=== PATIENT | male | born 1990 | race Caucasian/White ===

== ENCOUNTER 2019-05-06 18:50 | Emergency (ER) | payer OTHER ==
[2019-05-06] MEDS ORDERED: HYDROCODONE/APAP 10/325 TAB ONE (19:23)
--- NOTE | 2019-05-06 20:07 | RAD REPORT ---
EXAM DESCRIPTION: CT - Head Brain Wo Cont - 05/06/2019 7:53 pm CLINICAL HISTORY: Headache/ear pain COMPARISON: None TECHNIQUE: Computed axial tomography of the head was obtained. IV contrast was not requested. All CT scans are performed using dose optimization technique as appropriate and may include automated exposure control or mA/KV adjustment according to patient size. FINDINGS: An intracranial bleed is not seen . The ventricles are normal in caliber. No extra-axial fluid collection is noted. Mild to moderate low-density areas within periventricular, deep and subcortical white matter likely r epresent ischemic changes secondary to small vessel disease. Mild right maxillary sinusitis. No fluid within the mastoid IMPRESSION: No acute intracranial abnormality is seen. If patient's symptoms persist MRI of the bra in would be recommended.
--- NOTE | 2019-05-06 20:14 | EDPHYS ---
Physician Documentation [facility] Name: Nithin Mendoza Age: 29 yrs Sex: Male : 1990 Arrival Date: 05/06/2019 Time: 18:50 Bed 25 Private MD: ED Physician Chaparro Rizvi HPI: 05/06 22:08 This 29 yrs old Male presents to ER via Ambulatory with complaints of Ear kb Pain. 22:08 The patient presents with pain, that is acute. The complaints affect the left ear. kb Onset: The symptoms/episode began/occurred this morning. Modifying factors: The symptoms are alleviated by nothing, the symptoms are aggravated by pulling on ears, touching. Associated signs and symptoms: The patient has no apparent associated signs or symptoms. Severity of symptoms: At their worst the symptoms were moderate in the emergency department the symptoms are unchanged. The patient has experienced similar episodes in the past. The patient has not recently seen a physician. Historical: - Allergies: 18:56 Amoxicillin; aj 18:56 Bactrim; aj - Immunization history:: Adult Immunizations up to date. - Social history:: Smoking status: Patient/guardian denies using tobacco. - Ebola Screening: : No symptoms or risks identified at this time. ROS: 22:06 Constitutional: Negative for fever, chills, and weight loss, Neck: Negative for injury, kb pain, and swelling, Cardiovascular: Negative for chest pain, palpitations, and edema, Respiratory: Negative for shortness of breath, cough, wheezing, and pleuritic chest pain, Abdomen/GI: Negative for abdominal pain, nausea, vomiting, diarrhea, and constipation, : Negative for injury, bleeding, discharge, and swelling, MS/Extremity: Negative for injury and deformity, Skin: Negative for injury, rash, and discoloration, Neuro: Negative for headache, weakness, numbness, tingling, and seizure. 22:06 ENT: Positive for ear pain. Exam: 22:07 Constitutional: This is a well developed, well nourished patient who is awake, alert, kb and in no acute distress. Head/Face: Normocephalic, atraumatic. Neck: Trachea midline, no thyromegaly or masses palpated, and no cervical lymphadenopathy. Supple, full range of motion without nuchal rigidity, or vertebral point tenderness. No Meningismus. Chest/axilla: Normal chest wall appearance and motion. Nontender with no deformity. No lesions are appreciated. Cardiovascular: Regular rate and rhythm with a normal S1 and S2. No gallops, murmurs, or rubs. Normal PMI, no JVD. No pulse deficits. Respiratory: Lungs have equal breath sounds bilaterally, clear to auscultation and percussion. No rales, rhonchi or wheezes noted. No increased work of breathing, no retractions or nasal flaring. Abdomen/GI: Soft, non-tender, with normal bowel sounds. No distension or tympany. No guarding or rebound. No evidence of tenderness throughout. Skin: Warm, dry with normal turgor. Normal color with no rashes, no lesions, and no evidence of cellulitis. MS/ Extremity: Pulses equal, no cyanosis. Neurovascular intact. Full, normal range of motion. Neuro: Awake and alert, GCS 15, oriented to person, place, time, and situation. Cranial nerves II-XII grossly intact. Motor strength 5/5 in all extremities. Sensory grossly intact. Cerebellar exam normal. Normal gait. 22:07 ENT: External ear(s): pain with movement, that is severe, of the left ear lobe and left mastoid area, Ear canal(s): erythema, that is moderate, of the left canal, swelling, that is minimal, of the left canal, TM's: are normal. Vital Signs: 18:56 BP 180 / 97; Pulse 95; Resp 16; Temp 97.7; Pulse Ox 97% on R/A; Weight 123.38 kg; aj Height 5 ft. 9 in. (175.26 cm); 19:45 BP 137 / 95; Pulse 81; Resp 18; Pulse Ox 95% on R/A; ea 20:15 BP 127 / 86; Pulse 78; Resp 18; Temp 98; Pulse Ox 99% ; ea 20:15 Pain 4/10; ea 18:56 Body Mass Index 40.17 (123.38 kg, 175.26 cm) aj MDM: 19:06 Patient medically screened. kb 22:06 Data reviewed: vital signs, nurses notes. Data interpreted: Pulse oximetry: on room air kb is 99 %. Interpretation: normal. Counseling: I had a detailed discussion with the patient and/or guardian regarding: the historical points, exam findings, and any diagnostic results supporting the discharge/admit diagnosis, radiology results, the need for outpatient follow up, an ENT specialist, to return to the emergency department if symptoms worsen or persist or if there are any questions or concerns that arise at home. 05/06 19:16 Order name: CT Head Brain wo Cont; Complete Time: 20:11 kb Administered Medications: 19:28 Drug: [place] 10 mg-325 mg 1 tabs {Note: Alert and calm-0.} Route: PO; ea 20:15 Follow up: Pain 4/10 Adult; Response: No adverse reaction; Pain is decreased; RASS: ea Alert and Calm (0) Disposition: 05/07 02:22 Co-signature as Attending Physician, Chaparro Rizvi MD. rn Disposition: 05/06/19 20:12 Discharged to Home. Impression: Unspecified otitis externa, left ear. - Condition is Stable. - Discharge Instructions: Otitis Externa, [id number], Ear Drops, Adult, [id number]. - Prescriptions for Ciprodex 0.3- 0.1 % Otic Drops, Suspension - instill 4 drop by OTIC route every 12 hours for 7 days , for ears ONLY; 1 Container. - Medication Reconciliation Form, Thank You Letter, Antibiotic Education, Prescription Opioid Use form. - Follow up: Emergency Department; When: As needed; Reason: Worsening of condition. Follow up: Private Physician; When: 2 - 3 days; Reason: Recheck today's complaints, Continuance of care, Re-evaluation by your physician. Signatures: Dispatcher [employer] EDAnne Muñiz, PROPULSION SYSTEMS ENGINEER-C PROPULSION SYSTEMS ENGINEER-Ckb Andreia Huerta RN RN aj Nieto, Roman, MD MD rn Antunez, Elena, RN RN ea Corrections: (The following items were deleted from the chart) 05/06 20:36 20:12 05/06/2019 20:12 Discharged to Home. Impression: Unspecified otitis externa, left ea ear. Condition is Stable. Forms are Medication Reconciliation Form, Thank You Letter, Antibiotic Education, Prescription Opioid Use. Follow up: Emergency Department; When: As needed; Reason: Worsening of condition. Follow up: Private Physician; When: 2 - 3 days; Reason: Recheck today's complaints, Continuance of care, Re-evaluation by your physician. kb
--- NOTE | 2019-05-06 20:14 | ER ---
Nurse's Notes [facility] Name: Nithin Mendoza Age: 29 yrs Sex: Male : 1990 Arrival Date: 05/06/2019 Time: 18:50 Bed 25 Private MD: Diagnosis: Unspecified otitis externa, left ear Presentation: 05/06 18:55 Presenting complaint: Patient states: Left ear pain since this AM. Transition of care: aj patient was not received from another setting of care. Onset of symptoms was May 06, 2019. Risk Assessment: Do you want to hurt yourself or someone else? Patient reports no desire to harm self or others. Initial Sepsis Screen: Does the patient meet any 2 criteria? No. Patient's initial sepsis screen is negative. Does the patient have a suspected source of infection? No. Patient's initial sepsis screen is negative. Care prior to arrival: None. 18:55 Method Of Arrival: Ambulatory 18:55 Acuity: DAISY 4 ea Triage Assessment: 18:56 General: Appears in no apparent distress. uncomfortable, Behavior is calm, cooperative, aj appropriate for age. Pain: Complains of pain in left ear. EENT: Reports pain in left ear. Neuro: Level of Consciousness is awake, alert, obeys commands, Oriented to person, place, time, situation, Appropriate for age. Respiratory: Airway is patent Respiratory effort is even, unlabored, Respiratory pattern is regular, symmetrical. Derm: Skin is intact, is healthy with good turgor, Skin is pink, warm \T\ dry. normal. Historical: - Allergies: 18:56 Amoxicillin; aj 18:56 Bactrim; aj - Immunization history:: Adult Immunizations up to date. - Social history:: Smoking status: Patient/guardian denies using tobacco. - Ebola Screening: : No symptoms or risks identified at this time. Screenin:36 Abuse screen: Denies threats or abuse. Nutritional screening: No deficits noted. ea Tuberculosis screening: No symptoms or risk factors identified. Fall Risk None identified. Assessment: 19:30 General: Appears in no apparent distress. Behavior is appropriate for age. Pain: ea Complains of pain in left ear. Neuro: Level of Consciousness is awake, alert, obeys commands, Oriented to person, place, time, situation. Cardiovascular: Patient's skin is warm and dry. Respiratory: Airway is patent Respiratory effort is even, unlabored, Respiratory pattern is regular, symmetrical. Derm: Skin is pink, warm \T\ dry. 20:32 Reassessment: Patient and/or family updated on plan of care and expected duration. Pain ea level reassessed. Patient is alert, oriented x 3, equal unlabored respirations, skin warm/dry/pink. Pt reports pain has decreased. Discharge instruction given to patient, verbalized the understanding of instruction. Pt left ED ambulatory, pt tolerating well. Patient states feeling better. Vital Signs: 18:56 BP 180 / 97; Pulse 95; Resp 16; Temp 97.7; Pulse Ox 97% on R/A; Weight 123.38 kg; aj Height 5 ft. 9 in. (175.26 cm); 19:45 BP 137 / 95; Pulse 81; Resp 18; Pulse Ox 95% on R/A; ea 20:15 BP 127 / 86; Pulse 78; Resp 18; Temp 98; Pulse Ox 99% ; ea 20:15 Pain 4/10; ea 18:56 Body Mass Index 40.17 (123.38 kg, 175.26 cm) aj ED Course: 18:50 Patient arrived in ED. as 18:54 [facility] Pritchard [facility]C [facility] kb 18:54 Chaparro Rizvi MD is Attending Physician. kb 18:56 Triage completed. aj 18:56 Arm band placed on left wrist. Patient placed in waiting room. aj 19:21 Deepa Alcantara, RN is Primary Nurse. ea 19:37 Patient has correct armband on for positive identification. Bed in low position. Call ea light in reach. Side rails up X2. 19:53 CT Head Brain wo Cont In Process Unspecified. EDMS 20:33 No provider procedures requiring assistance completed. Patient did not have IV access ea during this emergency room visit. Administered Medications: 19:28 Drug: [place] 10 mg-325 mg 1 tabs {Note: Alert and calm-0.} Route: PO; ea 20:15 Follow up: Pain 4/10 Adult; Response: No adverse reaction; Pain is decreased; RASS: ea Alert and Calm (0) Outcome: 20:12 Discharge ordered by . kb 20:35 Discharged to home ambulatory, with family. ea 20:35 Condition: stable 20:35 Discharge instructions given to patient, Instructed on discharge instructions, follow up and referral plans. medication usage, Demonstrated understanding of instructions, follow-up care, medications, Prescriptions given X 1. 20:36 Patient left the ED. elaine Signatures: Dispatcher [employer] EDAnne Muñiz, WIRE WALKER-C EDINSON-Andreia Thapa, RN Park Borrego Elena, RN RN ea Corrections: (The following items were deleted from the chart) 19:22 18:55 Acuity: DAISY 5 siobhan henry
== END 2019-05-06 20:36 | disposition home or self-care (01) ==
LOC: ER 18:50 → EDBD 18:50 → ER 20:36
DX: H60.92 Unspecified otitis externa, left ear (principal); Z88.1 Allergy status to other antibiotic agents
CPT/HCPCS: 70450; 99283

== ENCOUNTER 2020-07-06 23:58 | Emergency (ER) | payer OTHER ==
[2020-07-07] MEDS ORDERED: MORPHINE 4 MG/ML SYR ONE (00:23)
[2020-07-07] MEDS ORDERED: ONDANSETRON 4 MG/2 ML VIAL ONE (00:23)
[2020-07-07] MEDS ORDERED: KETOROLAC 30 MG/ML INJ ONE (00:25)
[2020-07-07 00:54] LABS: Absolute Lymphocytes (CBC) 6.6 K/uL (0.7-4.9); Basophils % 0.7 % (0-1.3); Hematocrit 47.5 % (39.6-49.0); Lymphocytes % 37.3 % (15.3-44.8); MPV 9.7 fL (7.6-11.3); RBC Red Blood Cell Count 5.17 M/uL (4.33-5.43)
[2020-07-07 00:55] LABS: Protime INR 1.07
[2020-07-07 01:05] LABS: ALT/SGPT 72 U/L (12-78); AST/SGOT 39 U/L (15-37); Albumin 4.2 g/dL (3.4-5.0); Alkaline Phosphatase 106 U/L (45-117); BUN Blood Urea Nitrogen 15 mg/dL (7-18); Bicarbonate 27 mmol/L (21-32); Bilirubin Direct < 0.1 mg/dL (0-0.2); Bilirubin Total 0.3 mg/dL (0.2-1.0); Glucose Level 121 mg/dL (74-106); Magnesium 2.1 mg/dL (1.8-2.4); NT PRO-BNP 34 pg/mL (<125); Potassium 3.7 mmol/L (3.5-5.1); Sodium Level 143 mmol/L (136-145); Troponin (Emerg Dept Use Only) < 0.02 ng/mL (0.0-0.045)
--- NOTE | 2020-07-07 04:19 | ER ---
Nurse's Notes [facility] Name: Nithin Mendoza Age: 30 yrs Sex: Male : 1990 Arrival Date: 07/06/2020 Time: 23:59 Bed 5 Private MD: Diagnosis: Other chest pain Presentation: 07/07 00:04 Chief complaint: Patient states: I was short of breath and having chest pain while I tl1 was driving over here and when I was walking into the ER I became very dizzy. Coronavirus screen: Client denies travel out of the [place] in the last 14 days. Client presents with at least one sign or symptom that may indicate coronavirus-19. Standard/surgical mask placed on the client. Provider contacted for isolation considerations. Ebola Screen: Patient negative for fever greater than or equal to 101.5 degrees Fahrenheit, and additional compatible Ebola Virus Disease symptoms Patient denies exposure to infectious person. Patient denies travel to an Ebola-affected area in the 21 days before illness onset. Initial Sepsis Screen: Does the patient meet any 2 criteria? RR > 20 per min. HR > 90 bpm. Does the patient have a suspected source of infection? No. Patient's initial sepsis screen is negative. Risk Assessment: Do you want to hurt yourself or someone else? Patient reports no desire to harm self or others. Onset of symptoms was July 07, 2020. 00:04 Method Of Arrival: Ambulatory tl1 00:04 Acuity: DAISY 2 tl1 Historical: - Allergies: 00:08 Amoxicillin; tl1 00:08 Bactrim; tl1 - Home Meds: 00:08 Lisinopril Oral [Active]; Synthroid Oral [Active]; Lasix Oral [Active]; tl1 - PMHx: 00:08 Hypertension; Hypothyroidism; tl1 - Immunization history:: Adult Immunizations unknown. - Social history:: Smoking status: Patient reports the use of cigarette tobacco products, smokes 1.5 packs per day, Patient uses alcohol, occasionally. Screenin:24 Abuse screen: Denies threats or abuse. Denies injuries from another. Nutritional rr5 screening: No deficits noted. Tuberculosis screening: No symptoms or risk factors identified. Fall Risk IV access (20 points). Total Cordero Fall Scale indicates No Risk (0-24 pts). Assessment: 00:10 General: Appears in no apparent distress. uncomfortable, Behavior is cooperative, rr5 anxious. Pain: Pain currently is 8 out of 10 on a pain scale. Quality of pain is described as aching, Pain began gradually, Is intermittent. Neuro: Level of Consciousness is awake, alert, obeys commands, Oriented to person, place, time, situation, Reports dizziness. Cardiovascular: Reports chest pain, shortness of breath, Capillary refill < 3 seconds Patient's skin is warm and dry. Respiratory: Airway is patent Respiratory effort is even, labored, Respiratory pattern is regular, symmetrical, tachypnea. GI: No signs and/or symptoms were reported involving the gastrointestinal system. : No signs and/or symptoms were reported regarding the genitourinary system. EENT: No signs and/or symptoms were reported regarding the EENT system. Derm: Skin is intact, is healthy with good turgor, Skin temperature is warm. Musculoskeletal: Circulation, motion, and sensation intact. Capillary refill < 3 seconds. 01:10 Reassessment: Patient appears in no apparent distress at this time. Patient and/or rr5 family updated on plan of care and expected duration. Pain level reassessed. Patient is alert, oriented x 3, equal unlabored respirations, skin warm/dry/pink. 01:41 Reassessment: SYMPTOMS ARE RESOLVING. PATIENT'S BREATHING IS MORE EFFECTIVE NOW. DENIES rv CHEST PAIN AT THE MOMENT. VITAL SIGNS STABLE. Patient states feeling better. Patient states symptoms have improved. Neuro: Level of Consciousness is awake, alert, obeys commands, Oriented to person, place, time, situation. Cardiovascular: Patient's skin is warm and dry. Rhythm is sinus rhythm with unifocal PVCs. 02:30 Reassessment: Patient appears in no apparent distress at this time. Patient is alert, rr5 oriented x 3, equal unlabored respirations, skin warm/dry/pink. back from CT scan. 03:30 Reassessment: Patient appears in no apparent distress at this time. Patient and/or rr5 family updated on plan of care and expected duration. Pain level reassessed. Patient is alert, oriented x 3, equal unlabored respirations, skin warm/dry/pink. 04:32 Reassessment: Patient appears in no apparent distress at this time. Patient is alert, rr5 oriented x 3, equal unlabored respirations, skin warm/dry/pink. discharge instruction given and explained without complaints made. Patient states symptoms have improved. Vital Signs: 00:04 BP 172 / 96; Pulse 109; Resp 26; Temp 100.2(O); Pulse Ox 100% ; Weight 122.47 kg; tl1 Height 5 ft. 8 in. (172.72 cm); Pain 8/10; 00:25 BP 130 / 79; Pulse 95; Resp 20; Pulse Ox 98% ; rr5 01:00 BP 137 / 73; Pulse 91; Resp 19; Pulse Ox 96% on R/A; rv 01:30 BP 109 / 69; Pulse 98; Resp 16; Pulse Ox 95% on R/A; rv 02:09 BP 112 / 72; Pulse 78; Resp 16; Pulse Ox 100% on R/A; rr5 03:00 BP 126 / 85; Pulse 70; Resp 17; Pulse Ox 99% ; rr5 04:10 BP 111 / 65; Pulse 79; Resp 15; Pulse Ox 98% ; rr5 00:04 Body Mass Index 41.05 (122.47 kg, 172.72 cm) tl1 ED Course: 07/06 23:59 Patient arrived in ED. sg 10 00:05 Vishnu Vargas MD is Attending Physician. tw4 00:05 Inserted saline lock: 20 gauge in right antecubital area, using aseptic technique. rv Blood collected. 00:05 Initial lab(s) drawn, by me, sent to lab. EKG done, by ED staff, reviewed by Vishnu Vargas MD. 00:06 Triage completed. tl1 00:07 Hector Hurtado, RN is Primary Nurse. rv 00:08 Arm band placed on right wrist. tl1 00:10 Patient has correct armband on for positive identification. Placed in gown. Bed in low rr5 position. Call light in reach. Side rails up X2. front desk monitor on. Pulse ox on. NIBP on. 00:11 EKG completed in triage. Results shown to . tl1 00:48 XRAY Chest (1 view) In Process Unspecified. EDMS 02:43 CT Chest For PE Angio In Process Unspecified. EDMS 03:30 Repeat lab(s) drawn. by ED staff, sent to lab. rr5 04:33 No provider procedures requiring assistance completed. IV discontinued, intact, rr5 bleeding controlled, No redness/swelling at site. Pressure dressing applied. Administered Medications: 00:17 Drug: Zofran (Ondansetron) 4 mg Route: IVP; Site: right antecubital; rv 01:10 Follow up: Response: No adverse reaction rr5 00:18 Not Given (Patient Refused): morphine 4 mg IVP once; RASS on ADMIN: Combtv4, Very rv Agttd3, Agttd2, Rstlss1, AlertClm0, Drwsy-1, Lt Sdtn-2, Mod Sdtn-3, Dp Sdtn-4, UnArsble-5 00:18 Drug: TORadol 30 mg Route: IVP; Site: right antecubital; rv 01:10 Follow up: Response: No adverse reaction rr5 Outcome: 04:18 Discharge ordered by . tw4 04:30 Discharged to home ambulatory. rr5 04:30 Condition: stable 04:30 Discharge instructions given to patient, Instructed on discharge instructions, follow up and referral plans. medication usage, Demonstrated understanding of instructions, follow-up care, medications, Prescriptions given X 1. 04:32 Patient left the ED. sg Signatures: Dispatcher [employer] EDMS Percy Arrington RN RN sg Stacie Carmona RN RN tl1 Vishnu Vargas MD MD tw4 Hector Hurtado RN RN rv Bipin Richardson RN RN rr5 Corrections: (The following items were deleted from the chart) 00:18 00:17 morphine 4 mg IVP in right antecubital rv rv
--- NOTE | 2020-07-07 04:20 | EDPHYS ---
Physician Documentation [facility] Name: Nithin Mendoza Age: 30 yrs Sex: Male : 1990 Arrival Date: 07/06/2020 Time: 23:59 Bed 5 Private MD: ED Physician Vishnu Vargas HPI: 07/07 00:13 This 30 yrs old Male presents to ER via Ambulatory with complaints of chest tw4 pain. 00:13 The patient or guardian reports chest pain that is located primarily in the substernal tw4 area. The pain does not radiate. Associated signs and symptoms: The patient has no apparent associated signs or symptoms. The chest pain is described as dull. Duration: The patient or guardian reports a single episode. Modifying factors: The symptoms are alleviated by nothing. the symptoms are aggravated by nothing. Severity of pain: At its worst the pain was moderate in the emergency department the pain is unchanged. Historical: - Allergies: 00:08 Amoxicillin; tl1 00:08 Bactrim; tl1 - Home Meds: 00:08 Lisinopril Oral [Active]; Synthroid Oral [Active]; Lasix Oral [Active]; tl1 - PMHx: 00:08 Hypertension; Hypothyroidism; tl1 - Immunization history:: Adult Immunizations unknown. - Social history:: Smoking status: Patient reports the use of cigarette tobacco products, smokes 1.5 packs per day, Patient uses alcohol, occasionally. ROS: 03:15 Constitutional: Negative for fever, chills, and weight loss, Eyes: Negative for injury, tw4 pain, redness, and discharge, Respiratory: Negative for shortness of breath, cough, wheezing, and pleuritic chest pain, Abdomen/GI: Negative for abdominal pain, nausea, vomiting, diarrhea, and constipation, Back: Negative for injury and pain, MS/Extremity: Negative for injury and deformity, Skin: Negative for injury, rash, and discoloration, Neuro: Negative for headache, weakness, numbness, tingling, and seizure. 03:15 Cardiovascular: Positive for chest pain, Negative for edema, orthopnea, palpitations. Exam: 03:15 Constitutional: This is a well developed, well nourished patient who is awake, alert, tw4 and in no acute distress. Head/Face: Normocephalic, atraumatic. Chest/axilla: Normal chest wall appearance and motion. Nontender with no deformity. No lesions are appreciated. Cardiovascular: Regular rate and rhythm with a normal S1 and S2. No gallops, murmurs, or rubs. Normal PMI, no JVD. No pulse deficits. Respiratory: Lungs have equal breath sounds bilaterally, clear to auscultation and percussion. No rales, rhonchi or wheezes noted. No increased work of breathing, no retractions or nasal flaring. Abdomen/GI: Soft, non-tender, with normal bowel sounds. No distension or tympany. No guarding or rebound. No evidence of tenderness throughout. Vital Signs: 00:04 BP 172 / 96; Pulse 109; Resp 26; Temp 100.2(O); Pulse Ox 100% ; Weight 122.47 kg; tl1 Height 5 ft. 8 in. (172.72 cm); Pain 8/10; 00:25 BP 130 / 79; Pulse 95; Resp 20; Pulse Ox 98% ; rr5 01:00 BP 137 / 73; Pulse 91; Resp 19; Pulse Ox 96% on R/A; rv 01:30 BP 109 / 69; Pulse 98; Resp 16; Pulse Ox 95% on R/A; rv 02:09 BP 112 / 72; Pulse 78; Resp 16; Pulse Ox 100% on R/A; rr5 03:00 BP 126 / 85; Pulse 70; Resp 17; Pulse Ox 99% ; rr5 04:10 BP 111 / 65; Pulse 79; Resp 15; Pulse Ox 98% ; rr5 00:04 Body Mass Index 41.05 (122.47 kg, 172.72 cm) tl1 MDM: 00:05 Patient medically screened. tw4 04:17 Differential diagnosis: pulmonary embolus, thoracic aortic disection. Data reviewed: tw4 vital signs, nurses notes. Counseling: I had a detailed discussion with the patient and/or guardian regarding: the historical points, exam findings, and any diagnostic results supporting the discharge/admit diagnosis, lab results, radiology results. Medication response: Response to treatment: and as a result, I will discharge patient. Special discussion: I discussed with the patient/guardian in detail that at this point there is no indication for admission to the hospital. It is understood, however, that if the symptoms persist or worsen the patient needs to return immediately for re-evaluation. 07/07 00:06 Order name: Basic Metabolic Panel; Complete Time: 01:08 tw4 07/07 01:08 Interpretation: Normal except: GLUC 121; GFR 74. tw4 07/07 00:06 Order name: CBC with Diff; Complete Time: 01:08 tw4 07/07 01:08 Interpretation: Normal except: WBC 17.7; NEUT A 9.0. tw4 07/07 00:06 Order name: LFT's; Complete Time: :08 tw4 07/07 01:08 Interpretation: Normal except: AST 39; GLOB 3.8. tw4 07/07 00:06 Order name: Magnesium; Complete Time: :08 tw4 07/07 01:09 Interpretation: Within normal limits: MG 2.1. tw4 07/07 00:06 Order name: NT PRO-BNP; Complete Time: 01:08 tw4 07/07 01:09 Interpretation: Within normal limits: NT PRO-BNP 34. tw4 07/07 00:06 Order name: PT-INR; Complete Time: :08 tw4 07/07 01:08 Interpretation: Normal except: PT 12.6. tw4 07/07 00:06 Order name: Troponin (emerg Dept Use Only); Complete Time: :08 tw4 07/07 00:06 Order name: XRAY Chest (1 view) tw4 07/07 01:01 Order name: CT Chest For PE Angio tw4 07/07 03:22 Order name: Troponin (emerg Dept Use Only) rv 07/07 00:06 Order name: EKG; Complete Time: 00:08 4 07/07 00:06 Order name: Cardiac monitoring; Complete Time: 00:25 tw4 07/07 00:06 Order name: EKG - Nurse/Tech; Complete Time: 00:25 tw4 07/07 00:06 Order name: IV Saline Lock; Complete Time: 00: tw4 07/07 00:06 Order name: Labs collected and sent; Complete Time: 00: tw4 07/07 00:06 Order name: O2 Per Protocol; Complete Time: 00:22 tw4 07/07 00:06 Order name: O2 Sat Monitoring; Complete Time: 00:22 tw4 EC:15 Rate is 114 beats/min. Rhythm is regular. QRS Ermine is Normal. ND interval is normal. tw4 QRS interval is normal. QT interval is normal. No Q waves. T waves are Normal. No ST changes noted. Clinical impression: Sinus tachycardia. Interpreted by me. Reviewed by me. Administered Medications: 00:17 Drug: Zofran (Ondansetron) 4 mg Route: IVP; Site: right antecubital; rv 01:10 Follow up: Response: No adverse reaction rr5 00:18 Not Given (Patient Refused): morphine 4 mg IVP once; RASS on ADMIN: Combtv4, Very rv Agttd3, Agttd2, Rstlss1, AlertClm0, Drwsy-1, Lt Sdtn-2, Mod Sdtn-3, Dp Sdtn-4, UnArsble-5 00:18 Drug: TORadol 30 mg Route: IVP; Site: right antecubital; rv 01:10 Follow up: Response: No adverse reaction rr5 Disposition: 07/07/20 04:18 Discharged to Home. Impression: Other chest pain. - Condition is Stable. - Discharge Instructions: Nonspecific Chest Pain, Pain Without a Known Cause. - Prescriptions for Ibuprofen 800 mg Oral Tablet - take 1 tablet by ORAL route every 12 hours As needed take with food; 20 tablet. - Medication Reconciliation Form, Thank You Letter, Antibiotic Education, Prescription Opioid Use form. - Follow up: Private Physician; When: Upon discharge from the Emergency Department; Reason: Recheck today's complaints, Continuance of care, Re-evaluation by your physician. - Problem is new. - Symptoms have improved. Signatures: Dispatcher [employer] [facility] Percy Arrington RN RN sg Stacie Carmona RN RN tl1 Vishnu Vargas MD MD tw4 Hector Hurtado RN RN rv Bipin Richadrson RN rr5 Corrections: (The following items were deleted from the chart) 03:34 03:25 TROPONIN (EMERG DEPT USE ONLY)+C.LAB.BRZ ordered. [facility] 04:32 04:18 07/07/2020 04:18 Discharged to Home. Impression: Other chest pain. Condition is sg Stable. Forms are Medication Reconciliation Form, Thank You Letter, Antibiotic Education, Prescription Opioid Use. Follow up: Private Physician; When: Upon discharge from the Emergency Department; Reason: Recheck today's complaints, Continuance of care, Re-evaluation by your physician. Problem is new. Symptoms have improved. tw4
[2020-07-07 04:43] VITALS: TEMP 100.2
[2020-07-07 04:54] VITALS: BP 111/65; O2SAT 98
--- NOTE | 2020-07-07 08:05 | RAD REPORT ---
EXAM DESCRIPTION: RAD - Chest Single View - 07/07/2020 12:47 am CLINICAL HISTORY: CHEST PAIN COMPARISON: None TECHNIQUE: AP portable chest image was obtained 07/07/2020 12:47 am . FINDINGS: Lung volumes are low. No peripheral lung parenchymal process. Interstitial markings are no t outside of normal range. Heart and vasculature are normal. No measurable pleural effusion and no pn eumothorax. No acute bony abnormality seen. No acute aortic findings suspected. IMPRESSION: No acute cardiopulmonary process.
--- NOTE | 2020-07-07 13:03 | RAD REPORT ---
EXAM DESCRIPTION: CT - Chest For Pe Angio - 07/07/2020 6:49 am CLINICAL HISTORY: CHEST PAIN TECHNIQUE: Contiguous axial images obtained through the chest during angiographic phase following th e uneventful administration of IV contrast. Sagittal and coronal reformatted images were provided. PA P reformatted images were provided. This exam was performed according to our departmental dose-optimization program, which includes autom ated exposure control, adjustment of the mA and/or kV according to patient size and/or use of iterati ve reconstruction technique. COMPARISON: No prior exams provided for comparison. FINDINGS: Diagnostic quality: There is good opacification of the pulmonary arterial tree. Motion art ifact degrades image quality and limits evaluation of segmental and subsegmental vessels. Lungs: No focal consolidation. Airways are patent. Pleura: No effusion. No pneumothorax. Heart and pericardium: The heart is normal in size. No pericardial effusion. Mediastinum and abraham: No pathologically enlarged lymph nodes. Lower neck and chest wall: Unremarkable Vessels: No pulmonary arterial filling defects. No thoracic aortic aneurysm. Upper abdomen: The liver is enlarged and diffusely low in density compatible with steatosis. Bones: Mild multilevel spondylosis. No acute fracture. IMPRESSION: Motion artifact degrades image quality and limits evaluation of segmental and subsegment al vessels. No central pulmonary embolic disease. Electronically signed by: Yeimi Sarah MD 07/07/2020 2:55 AM CDT Due to temporary technical issues with the PACS/Fluency reporting system, reports are being signed by the in house radiologist without review as a courtesy to ensure prompt reporting. The interpreting r adiologist is fully responsible for the content of the report.
--- OUTSIDE RECORDS SUMMARY | 2020-07-07 22:44 | XMS REPORT | Continuity of Care Document ---
:1990 Author Organization [facility] t Address [address] [place] [address] Care Team Providers Name Role Phone Valentin Andersen MD Attending Clinician Problems This patient has no known problems. Allergies, Adverse Reactions, Alerts This patient has no known allergies or adverse reactions. Medications This patient has no known medications. Procedures This patient has no known procedures. Encounters Start End Encounter Admission Attending Care Care Encounter Source Date/Time Date/Time Type Type Clinicians Facility Department ID 2020-07-07 2020-07-07 Office SERJIO Andersen [id number] 16:07:38 16:27:38 Visit Valentin Gaines [id number] [place] [id number] [phone] [place] [facility] Building Results This patient has no known results.
== END 2020-07-07 04:32 | disposition home or self-care (01) ==
LOC: ER 23:58
DX: R07.89 Other chest pain (principal); I10 Essential (primary) hypertension; E03.9 Hypothyroidism, unspecified; F17.210 Nicotine dependence, cigarettes, uncomplicated; Z88.1 Allergy status to other antibiotic agents
CPT/HCPCS: 93005; 85025; 80048; 36415; 83735; 85610; 80076; 84484 ×2; 83880; 71275; 71045; 96375; 96374; 99285; Q9967; J2405

== ENCOUNTER 2020-11-04 19:00 | Emergency (ER) | payer OTHER ==
--- OUTSIDE RECORDS SUMMARY | 2020-11-04 19:03 | XMS REPORT | Continuity of Care Document ---
:1990 Author Organization [facility] t Address [address] [place] [address] Care Team Providers Name Role Phone Singer BRO Attending Clinician Uri MORELOS, Johnnie Attending Clinician Problems This patient has no known problems. Allergies, Adverse Reactions, Alerts This patient has no known allergies or adverse reactions. Medications This patient has no known medications. Procedures This patient has no known procedures. Encounters Start End Encounter Admission Attending Care Care Encounter Source Date/Time Date/Time Type Type Clinicians Facility Department ID 2020-11-04 2020-11-04 Emergency [place] [id number] 18:03:00 18:34:00 Anthony Gaines [id number] [place] [id number] [place] [id number] 2020-11-04 2020-11-04 Emergency [facility] [id number] 17:28:00 17:32:00 [place] [id number] [place] [id number] [place] [id number] 2020-10-28 2020-10-28 Office Uri [facility] [id number] 09:47:36 10:52:20 Visit Francisco Gaines [id number] Johnnie [place] [id number] [facility] [phone] [facility] 188 Building Results This patient has no known results.
--- OUTSIDE RECORDS SUMMARY | 2020-11-04 19:03 | XMS REPORT | Summary of Care ---
:1990 Author Organization [facility] [place] Address [address] [place] [id number] Care Team Providers Name Role Phone Valentin Andersen MD Primary Care Provider Reason for Referral (Routine) Status Reason Specialty Diagnoses / Referred By Referred To Procedures Contact Contact New Request Surgery Diagnoses Abdominal hernia without obstruction and without gangrene, recurrence not specified, unspecified hernia type Valentin Andersen, Procedures CONSULT/REFERRAL GENERAL SURGERY MD [address] [place] [address] [address] [place], [place] [address] Reason for Visit Reason Comments Follow-up Anxiety Depression Sleep Apnea Thyroid Problem Hyperlipidemia Hypertension VACCINATIONS Encounter Details Date Type Department Care Team Description 08/17/2020 Office Visit [facility] Valentin Andersen, Anxiety an d depression (Primary Dx); Pediatric and Adult Essential hypertension; Primary Care- [address] [place], [place] [address] Gastroesophageal reflux disease, unspeci fied whether esophagitis present; [address] [place] [address] Abdominal hernia without obstruction and without gangrene, recurrence not specified, unspecified hernia type; Drive, [address] [place], [place] Adjustment insomnia; [place] [address] Class 3 severe obesity due to excess cain ories with serious comorbidity and body mass index (BMI) of 40.0 to 44.9 in adult; [id number] Need for 23-polyvalent pneumococcal poly saccharide vaccine; [phone] Nicotine depend ence, cigarettes, uncomplicated (Fax) Allergies Active Allergy Reactions Severity Noted Date Comments Amoxicillin Unknown - See comments 02/09/2019 Sulfa (Sulfonamide Antibiotics) Unknown - See comments 02/09/2019 documented as of this encounter (statuses as of 08/17/2020) Medications Medication Sig Dispensed Refills Start End Date Status Date terbinafine HCl 1 % Apply to 1 Tube 1 Active creamIndications: area(s) 0 Pain of right great daily. toe, Onychomycosis Diagnosis: B35.1. Apply daily to right big toe nail once daily x 4 weeks. ondansetron (ZOFRAN Take 1 20 tablet 0 Active ODT) 8 mg tablet by 0 disintegrating mouth every tabletIndications: 8 (eight) Non-intractable hours as vomiting with nausea, needed for unspecified vomiting Nausea and type Vomiting (N/V). lisinopril 20 mg Take 1 90 tablet 3 Act olvin tabletIndications: tablet by 0 Essential mouth daily. hypertension amLODIPine 5 mg Take 1 90 tablet 3 Acti ve tabletIndications: tablet by 0 Essential mouth daily. hypertension levothyroxine 88 mcg Take 1 90 tablet 3 Active tabletIndications: tablet by 0 Acquired mouth every hypothyroidism morning. omeprazole 20 mg Take 1 90 capsule 1 Ac tive capsuleIndications: capsule by 0 Gastroesophageal mouth daily. reflux disease, unspecified whether esophagitis present fish,bora,flax Take 1 90 capsule 1 Acti ve oils-om3,6,9no1 tablet by 0 (OMEGA 3-6-9) 1,200 mouth daily. mg CapIndications: High triglycerides hydrOXYzine 50 mg Take 0.5 90 tablet 1 Ac tive tabletIndications: tablets by 0 Anxiety and mouth every depression 8 (eight) hours as needed for Anxiety. traZODone 50 mg Take 1 30 tablet 3 Acti ve tabletIndications: tablet by 0 Anxiety and mouth at depression, bedtime. Adjustment insomnia atorvastatin 20 mg Take 1 90 tablet 1 A ctive tabletIndications: tablet by 0 High triglycerides mouth at bedtime. buPROPion SR Take 1 60 tablet 2 Active (WELLBUTRIN SR) 100 tablet by 0 mg SR mouth 2 tabletIndications: (two) times Anxiety and daily. depression, Nicotine dependence, cigarettes, uncomplicated FLUoxetine 10 mg Take 1 30 capsule 3 08/17/20 Di scontinued capsuleIndications: capsule by 0 20 (Alternate Anxiety and mouth daily. christopher torres) depression documented as of this encounter (statuses as of 08/17/2020) Active Problems Problem Noted Date High triglycerides 08/17/2020 Gastroesophageal reflux disease, unspecified whether e sophagitis present 08/17/2020 Abdominal hernia without obstruction and without gangr yandel, recurrence not 08/17/2020 specified, unspecified hernia type Adjustment insomnia 08/17/2020 Elevated LFTs 07/07/2020 Hospital discharge follow-up 07/07/2020 Pain of right great toe 11/30/2019 Onychomycosis 11/30/2019 Ingrown toenail of right foot 11/30/2019 Dry cough 11/30/2019 Prediabetes 11/30/2019 Obesity (BMI 35.0-39.9 without comorbidity) 11/30/2019 Sleep apnea in adult 02/09/2019 Essential hypertension 02/09/2019 Acquired hypothyroidism 02/09/2019 Class 3 severe obesity due to excess calories with ser ious comorbidity and 02/09/2019 body mass index (BMI) of 40.0 to 44.9 in adult Hypothyroidism, unspecified type Overview: hypothyroid Sleep apnea Hypertension Anxiety and depression Anxiety documented as of this encounter (statuses as of 08/17/2020) Immunizations Name Administration Dates Next Due Pneumococcal Polysaccharide, PPSV23 (PNEUMOVAX) 08/17/2020 documented as of this encounter Social History Tobacco Use Types Packs/Day Years Used Date Current Every Day Smoker Cigarettes 4 15 Sta rted: 02/10/2004 Smokeless Tobacco: Never Used Alcohol Use Drinks/Week oz/Week Comments Yes occassionally Sex Assigned at Date Recorded Not on file COVID-19 Exposure Response Date Recorded In the last month, have you been in contact with No / Unsure 08/17/2020 3:40 PM WORK FROM HOME someone who was confirmed or suspected to have Coronavirus / COVID-19? documented as of this encounter Last Filed Vital Signs Vital Sign Reading Time Taken Comments Blood Pressure 118/80 08/17/2020 4:11 PM WORK FROM HOME Pulse 81 08/17/2020 4:11 PM WORK FROM HOME Temperature 36.6 C (97.8 F) 08/17/2020 4:11 PM WORK FROM HOME Respiratory Rate 20 08/17/2020 4:11 PM WORK FROM HOME Oxygen Saturation 97% 08/17/2020 4:11 PM WORK FROM HOME Inhaled Oxygen Concentration - - Weight 121.6 kg (268 lb) 08/17/2020 4:11 PM WORK FROM HOME Height - - Body Mass Index 39.58 11/16/2019 9:58 PM WORK FROM HOME documented in this encounter Patient Instructions Patient InstructionsDevin Payne - 08/17/2020 3:40 PM CST Patient Education Prevention Guidelines, Men Ages 18 to 39 Screening tests and vaccines are an important part of managing your health. A screening test is doneto find possible disorders or diseases in people who don't have any symptoms. The goal is to find a disease early so lifestyle changes can be made and you can be watched more closely to reduce the riskof disease, or to detect it early enough to treat it most effectively. Screening tests are not used to diagnose. Instead, they are used to decide if more testing is needed.Health counseling is essential, too. Below are guidelines for these, for men ages 18 to 39. Talk with your healthcare provider to make sure youre up-to-date on what you need. Screening Who needs it How often Alcohol misuse All men in this age group At routine exams Blood pressure All men in this age group Yearly checkup if your blood pressure is normal Normal blood pressure is less than 120/80 If your blood pressure is higher than normal, follow the advice of your healthcare provider. Diabetes mellitus, type 2 Adults who have no symptoms but are overweight or obese and have 1 or moreother risk factors for diabetes At least every 3 years (yearly if blood sugar has already started to rise) Hepatitis C If at increased risk At routine exams High cholesterol or triglycerides All men ages 35 and older, and younger men at high risk for coronary artery disease At least every 5 years HIV All men At routine exams Obesity All men in this age group At routine exams Syphilis Men at increased risk for infection talk with your healthcare provider At routine exams Tuberculosis Men at increased risk for infection talk with your healthcare provider Check with your healthcare provider Vision All men in this age group Every 5 to 10 years if no risk factors for eye disease Vaccines Who needs it How often Chickenpox (varicella) All men in this age group who have no record of this infection or vaccine 2 doses; the second dose should be given at least 4 weeks after the first dose Hepatitis A Men at increased risk for infection talk with your healthcare provider 2 doses givenat least 6 months apart Hepatitis B Men at increased risk for infection talk with your healthcare provider 3 doses over 6 months; second dose should be given 1 month after the first dose; the third dose should be given atleast 2 months after the second dose and at least 4 months after the first dose Haemophilus influenzae Type B (HIB) Men at increased risk for infection talk with your healthcare provider 1 to 3 doses Human papillomavirus (HPV) All men in this age group up to age 26 3 doses; the second dose should begiven 1 to 2 months after the first dose and the third dose given 6 months after the first dose Influenza (flu) All men in this age group Once a year Measles, mumps, rubella (MMR) All men in this age group who have no record of these infections or vaccines 1 or 2 doses through age 55 Meningococcal Men at increased risk for infection talk with your healthcare provider 1 or more doses Pneumococcal (PCV13) and Pneumococcal (PPSV23) Men at increased risk for infection talk with your healthcare provider PCV13: 1 dose ages 19 to 65 (protects against 13 types of pneumococcal bacteria) PPSV23: 1 to 2 doses through age 64, or 1 dose at 65 or older (protects against 23 types of pneumococcal bacteria) Tetanus/diphtheria/pertussis (Td/Tdap) booster All men in this age group A one- time Tdap booster after age 18, then Td every 10 years Counseling Who needs it How often Diet and exercise Overweight or obese people When diagnosed, and then at routine exams Use of tobacco and the health effects it can cause All men in this age group Every visit Sexually transmitted infection prevention Men who are sexually active At routine exams Skin cancer All men in this age group. At routine exams. You may be reminded to avoid intentional tanning and tanning beds. 1Those who are 18 years of age, who are not up-to-date on their childhood immunizations, should get all appropriate catch-up vaccines recommended by the CDC. [employer] last reviewed this educational content on 12/30/201919994849-5292 [employer]. All rights reserved. This information is not intended as a substitute for professional medical care. Always follow your healthcare professional's instructions. Patient Education Managing High Blood Pressure with the DASH Diet What you eat can help lower your blood pressure and reduce your risk for stroke and heart disease. One such diet, the Dietary Approaches to Stop Hypertension (DASH) diet, has been shown toreduce blood pressure. This diet is low in saturated fat, cholesterol, and total fat. The dietemphasizes fruits, vegetables, and low-fat dairy products. Your blood pressure can be unhealthy even if it stays only slightly above 120/80 mm Hg. The higher above that level, the greater your health risk. Over time, high blood pressure makesyour heart work too hard. This can cause stroke, heart disease, heart failure, kidney disease, and even blindness. Blood pressure measurements are given as 2 numbers. Systolic blood pressure is the upper number. This is the pressure when the heart contracts. Diastolic blood pressure is the lower number. This is thepressure when the heart relaxes between beats. Blood pressure is categorized as normal, elevated, orstage 1 or stage 2 high blood pressure: Normal blood pressure is systolic of less than 120 and diastolic of less than 80 (120/80) Elevated blood pressure is systolic of 120 to 129 and diastolic less than 80 Stage 1 high blood pressure is systolic is 130 to 139 or diastolic between 80 to 89 Stage 2 high blood pressure is when systolic is 140 or higher or the diastolic is 90 or higher High blood pressure is diagnosed when multiple, separate readings show blood pressure above 130/80 mmHg. Talk with your healthcare provider if you have questions or concerns about your blood pressure readings. Why this diet works Why is the DASH diet so effective at reducing blood pressure? It combines many nutrients that have been shown to help reduce blood pressure.Those nutrients include calcium, potassium, magnesium, protein, and fiber, as well as lower total fat and saturated fat. The DASH diet is naturally low in salt.The DASH diet recommends menus containing 2,300 mg of sodium. The lower sodium DASH diet contains up to 1,500 mg of sodium a day. (One teaspoon of salt contains2,300 mg of sodium.) Further, following the DASH diet may delayyour need to take blood pressure lowering medicine, and may even keep you from needing to take it at all. And if you're already on medicine, it may help you reduce the amount you take. Doing the DASH The DASH diet is a 2,000-calorie diet that includes: Six to 8 daily servings of grains and grain products, such as whole-wheat bread, cereal, oatmeal,crackers, unsalted pretzels, and popcorn. A serving size is 1 slice of bread, 1 cup of sntid-jv-dob cereal, or a half-cup of rice, pasta, or cereal. Four to 5 daily servings of vegetables, the darker in color, the better. A serving size is 1 cup of raw leafy vegetables, ahalf-cup of cooked vegetables, or 6 ounces of vegetable juice. Four to 5 daily servings of fruit. A serving is 1 medium fruit, quarter-cup of dried fruit, half-cup of fresh, frozen or canned fruit, or 6 ounces of fruit juice. Two or 3 daily servings of low-fat or fat-free dairy products. A serving is 8 ounces of milk, 1 cup of yogurt, or 1 ounces of cheese. Six or fewer daily servings of lean meat, poultry, or fish. A serving is 1 ounce of cooked meats,skinless poultry, or fish. Four to 5 servings per week of nuts, seeds, and dry beans. A serving is one- third cup or 1 ounces of nuts, 1 tablespoon or half-ounce of seeds, or half- cup cooked dried beans. Two to 3 small daily servings of fats and oils like olive oil and low-fat salad dressing. A serving is 1 teaspoon soft margarine, 1 tablespoon low-fat mayonnaise, 2 tablespoons light salad dressing,or 1 teaspoon vegetable oil. Don't have fats that are saturated (animal fats) or trans fats. Five or fewer servings per week of sweets like maple syrup, sorbet, or gelatin. A serving is 1 tablespoon sugar, 1 tablespoon jelly or jam, half-ounce jellybeans, or 8 ounces of lemonade. Although the DASH diet isn't designed for weight loss, it can promote it if you reduce the number ofservings you eat. Most of the food the diet features is big on volume and low in calories. Still, there are parts of the DASH diet that may not be easy to follow. For one, it's packed with dark-colored fruits and vegetables, so be prepared to be choosier at the supermarket. Also, if it's very different from what you normally eat, it may be hard to adjust. If you're serious about following the diet, it's a good idea to work with a registered dietitian (RD) for support and guidance. (For the names of RDs in your area who know about the DASH diet, visit the Academy of Nutrition and Dietetics.) Moving forward If you decide to go it alone, adopt the DASH diet gradually. By doing so, you'll be more likely to stick to it long-term. For example, add 1 more serving of vegetables at lunch and dinner if youeat only 1 or 2 servings a day now.You might alsoadd fruit to meals and snacks if you now only have juice for breakfast. In addition, slowly increase your dairy products to 3 servings per day. Try drinking skim milk with lunch or dinner, instead of soda, alcohol, or tea. To get the most out of the DASH, lose weight if you need to and exercise regularly. Thirty to 40 minutes of moderate to vigorous intensity aerobic exercise 4 to 5 days a week is recommended. More dish on the DASH "TheDASH Eating Plan" is a 24-page online guide published by the [employer]. It offers a reader-friendly explanation of high blood pressure, detailed daily servings charts to help you plan your menus, a week of suggested DASH menus, plus tips to reduce sodium. For more information about diet and other lifestyle factors to reduce hypertension, visit Your Guideto Lowering Blood Pressure. 5730-9833 [employer]. [address] [place] [address]. All rights reserved. This information is not intended as a substitute for professional medical care. Always follow your healthcare professional's instructions. FROM HOME documented in this encounter Progress Notes Valentin Andersen MD - 08/17/2020 3:40 PM CST CC: Chief Complaint Patient presents with Follow-up Anxiety Depression Sleep Apnea Thyroid Problem Hyperlipidemia Hypertension VACCINATIONS HPI: Nithin Mendoza is a 30 year old male who has a past medical history of Anxiety, Depression, Hypertension, Sleep apnea, Thyroid disease and as noted below presenting for follow-up on chronic medical problems and for GERD. Patient reports that he has been having gastric reflux the last 2 months. Patient reports that he takes up to 20 TUMS a day which provides mild relief. Reports a metallic taste and halitosis. Patient had lab work done in June 2020 which showed elevated triglycerides at 298 and low HDL at 28. Patient reports that he is not currently taking any medications. Patient has started to make dietary modifications and increasing physical activity. Patient reports his anxiety and depression are getting worse, states that his relationship with his has improved. Patient reports that he has been more stressed recently because of the pandemic and not having a job. He has good social support from his and kids. Patient endorses passive SI, denies HI/AH/VH. Patient was prescribed fluoxetine 10mg qDay but he is not taking it because he is concerned about increased risk of suicidality. 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 Patient report he was laid off due to the pandemic. consult to Psychiatry was previously completed, pending appointment. BP is controlled on arrival 118/80, one amlodipine 5mg qDay and lisinopril 20mg qDay. Patient has hx prediabetic, prior A1c 5.4 on 07/08/2020. He reports weight gain since the pandemic, but wants to loss weight again. Takes levothyroxine 88 mcg qAM for hypothyroidism. Patient reports that his hypothyroidism is stable. Patient starting smoking again, goes through about 1PPD - 3 PPD, defers on nicotine replacement therapy at this time because it did not work last time he tried it. Allergies Nithin is allergic to amoxil [amoxicillin] and sulfa (sulfonamide antibiotics). Medications Outpatient Medications Prior to Visit Medication Sig Dispense Refill levothyroxine 88 mcg tablet Take 1 tablet by mouth every morning. 90 tablet 3 amLODIPine 5 mg tablet Take 1 tablet by mouth daily. 90 tablet 3 lisinopril 20 mg tablet Take 1 tablet by mouth daily. 90 tablet 3 FLUoxetine 10 mg capsule Take 1 capsule by mouth daily. 30 capsule 3 ondansetron (ZOFRAN ODT) 8 mg disintegrating tablet Take 1 tablet by mouth every 8 (eight) hoursas needed for Nausea and Vomiting (N/V). 20 tablet 0 terbinafine HCl 1 % cream Apply to area(s) daily. Diagnosis: B35.1. Apply daily to right big toe nail once daily x 4 weeks. 1 Tube 1 No facility-administered medications prior to visit. Histories Past Medical History: Diagnosis Date Anxiety Depression Hypertension Sleep apnea Thyroid disease hypothyroid History reviewed. No pertinent surgical history. Social History Socioeconomic History Marital status: Spouse name: Not on file Number of children: Not on file Years of education: Not on file Highest education level: Not on file Occupational History Not on file Social Needs Financial resource strain: Not on file Food insecurity Worry: Not on file Inability: Not on file Transportation needs Medical: Not on file Non-medical: Not on file Tobacco Use Smoking status: Current Every Day Smoker Packs/day: 4.00 Years: 15.00 Pack years: 60.00 Types: Cigarettes Start date: 02/10/2004 Smokeless tobacco: Never Used Substance and Sexual Activity Alcohol use: Yes Comment: occassionally Drug use: No Comment: previously used marijuana. 12 years ago- used cocaine, heroine, meth Sexual activity: Yes Lifestyle Physical activity Days per week: Not on file Minutes per session: Not on file Stress: Not on file Relationships Social connections Talks on phone: Not on file Gets together: Not on file Attends taoist service: Not on file Active member of club or organization: Not on file Attends meetings of clubs or organizations: Not on file Relationship status: Not on file Intimate partner violence Fear of current or ex partner: Not on file Emotionally abused: Not on file Physically abused: Not on file Forced sexual activity: Not on file Other Topics Concern Not on file Social History Narrative Not on file Family History Problem Relation Age of Onset Diabetes Maternal Grandmother Heart Maternal Grandfather Review of Systems Constitutional: Negative for chills, fatigue and fever. HENT: Negative for congestion and rhinorrhea. Eyes: Negative for pain. Respiratory: Negative for chest tightness and shortness of breath. Cardiovascular: Negative for chest pain, palpitations and leg swelling. Gastrointestinal: Negative for abdominal pain, nausea and vomiting. Genitourinary: Negative for dysuria, polyuria and penile pain. Musculoskeletal: Negative for arthralgias. Neurological: Negative for dizziness, weakness and headaches. Psychiatric/Behavioral: Negative for agitation, decreased concentration, dysphoric mood, hallucinations, self-injury and sleep disturbance. The patient is nervous/anxious. Intermittent periods of anxiety. Denies SI/HI/AH/VH Endocrine: Negative for polydipsia, polyphagia and polyuria. Vital Signs BP 118/80 | Pulse 81 | Temp 36.6 C (97.8 F) (Oral) | Resp 20 | Wt 268 lb (121.6 kg) | SpO2 97% | BMI 39.58 kg/m Physical Exam Vitals signs and nursing note reviewed. Constitutional: General: He is not in acute distress. Appearance: He is well-developed. HENT: Head: Normocephalic. Right Ear: External ear normal. Left Ear: External ear normal. Eyes: Conjunctiva/sclera: Conjunctivae normal. Pupils: Pupils are equal, round, and reactive to light. Neck: Musculoskeletal: Normal range of motion and neck supple. Cardiovascular: Rate and Rhythm: Normal rate and regular rhythm. Heart sounds: Normal heart sounds. Pulmonary: Effort: Pulmonary effort is normal. Breath sounds: Normal breath sounds. Abdominal: General: Bowel sounds are normal. Palpations: Abdomen is soft. Musculoskeletal: Normal range of motion. Skin: General: Skin is warm and dry. Capillary Refill: Capillary refill takes less than 2 seconds. Neurological: Mental Status: He is alert and oriented to person, place, and time. Psychiatric: Behavior: Behavior normal. Thought Content: Thought content normal. Judgment: Judgment normal. Comments: Stable s/p external ER visit 07/06/2020. Anxiety and depression noted, not in crisis, noSI/HI/AH/VH Assessment/Plan Anxiety and Depression - Patient reports his anxiety is worsening, consult to psychiatrist ordered, pending appointment. Denies SI/HI/AH/VH - Patient reports that he does not want to take Fluoxetine 10mg, start wellbutrin 150 SR qDay, Hydroxyzine 50mg q8H PRN and Trazodone 50mg qHS - Educational handout on mental health resources provided. Essential hypertension - Stable and controlled, Goal BP < 140/90 - Continue on Amlodipine 5mg qDay and Lisinopril 20mg qDay. - Educated patient about DASH diet and encouraged him to continue weight loss and lifestyle modifications, discussed tobacco cessation. High Triglycerides - Lipid panel reviewed and discussed. Will start on Atorvastatin 20mg qHS with [place] 3 fatty acid supplementation. Continue dietary and lifestyle modification. Monitor. Hypothyroidism, unspecified type - Stable. Thyroid levels WNL. Continue levothyroxine 88 mcg qAM Abdominal hernia without obstruction and without gangrene, recurrence not specified, unspecified hernia type - Lifestyle and dietary modification discussed, advised to cut back on smoking - CONSULT/REFERRAL GENERAL SURGERY Adjustment insomnia - Anticipatory guidance discussed - traZODone 50 mg tablet; Take 1 tablet by mouth at bedtime. Dispense: 30 tablet; Refill: 3 Obesity (BMI 35.0-39.9 without comorbidity) - Patient is prediabetic (A1C 5.7) - Body mass index is 39.58 kg/m. - Has lost 25 lbs since JORGITO in 2018, and he is motivated to continue weight loss. - Encouraged patient to continue regular exercise, healthy diet. Nicotine dependence, cigarettes, uncomplicated - Benefits of cessation discussed > 10 minutes. He wants to quit, failed nicotine trandermal therapy, will start on Wellbutrin, will monitor - buPROPion SR (WELLBUTRIN SR) 100 mg SR tablet; Take 1 tablet by mouth 2 (two) times daily. Dispense: 60 tablet; Refill: 2 Need for 23-polyvalent pneumococcal polysaccharide vaccine - Patient is current everyday smoker. - PNEUMOCOCCAL VACCINE, 23-VALENT (PNEUMOVAX) Return in about 2 weeks (around 08/31/2020), or if symptoms worsen or fail to improve. Preventive Care: Medication reconciliation, patient education and anticipatory guidance completed. All questions and concerns addressed. AVS given, handout provided. Devin Payne 08/17/2020 3:44 PM I personally examined the patient on 08/17/2020 and agree with MS 4 (Devin Payne) note as written, including any changes or additions to the medical student's note. I actively participated in the decision making process. Please see note for additional details. Valentin Andersen MD, MPH, AAHIVS Clinical Metal Sheet Roller Operator, Department of Family Medicine [facility] Primary & Specialty Care - [facility] 08/17/2020 5:01 PM Future Appointments In 2 weeks Valentin Andersen MD [facility] Pediatric and Adult Primary [facility]- [facility] In 1 month Valentin Andersen MD [facility]- [facility] FROM HOME documented in this encounter Plan of Treatment Date Type Specialty Care Team Description 09/01/2020 Office Visit Family Medicine Valentin Andersen MD [address] [place] [address] Dr [place], [place] [address] [phone] 10/07/2020 Office Visit Family Medicine Valentin Andersen MD [address] [place] [address] Dr [place], [place] [address] [phone] Health Maintenance Due Date Last Done Comments INFLUENZA VACCINE (#1) 2021 Postponed from 05/31/2020 (Pare nt Refused) DTaP,Tdap,and Td Vaccines (1 07/07/2021 Pos tponed from - Tdap) 2007 (Refu sed) Depression Screening 08/17/2021 08/17/2020, 08/17/2020 PNEUMOCOCCAL 0-64 YEARS Completed 08/17/2020 COMBINED SERIES VARICELLA VACCINES Discontinued documented as of this encounter Procedures Procedure Name Priority Date/Time Associated Diagnosis Comme nts PNEUMOCOCCAL VACCINE, Routine 08/17/2020 4:53 PM Need for 23- polyvalent 23-VALENT (PNEUMOVAX) WORK FROM HOME pneumococcal polysaccharide vaccine documented in this encounter Results Not on filedocumented in this encounter Visit Diagnoses Diagnosis Anxiety and depression - Primary Dysthymic disorder Essential hypertension Unspecified essential hypertension High triglycerides Pure hyperglyceridemia Gastroesophageal reflux disease, unspeci fied whether esophagitis present Abdominal hernia without obstruction and without gangrene, recurrence not specified, unspecified hernia type Adjustment insomnia Transient disorder of initiating or main taining sleep Class 3 severe obesity due to excess cain ories with serious comorbidity and body mass index (BMI) of 40.0 to 44.9 in adult Need for 23-polyvalent pneumococcal poly saccharide vaccine Nicotine dependence, cigarettes, uncompl icated documented in this encounter Insurance Payer Benefit Plan / Subscriber ID Effective Dates Phone Addre ss Type Group [facility] [id number] 2019-Present Medicaid COMM PLAN - MANAGED MEDICAID documented as of this encounter
--- OUTSIDE RECORDS SUMMARY | 2020-11-04 19:04 | XMS REPORT | Summary of Care ---
:1990 Author Organization [facility] Address [address] [place] [id number] Care Team Providers Name Role Phone Valentin Andersen MD Primary Care Provider Reason for Referral (Routine) Status Reason Specialty Diagnoses / Referred By Referred To Procedures Contact Contact New Request Surgery Diagnoses Abdominal hernia without obstruction and without gangrene, recurrence not specified, unspecified hernia type Valentin Andersen, Procedures CONSULT/REFERRAL GENERAL SURGERY MD [address] [place] [address] [address] [place], [place] [address] Reason for Visit Reason Comments Follow-up Anxiety Depression Sleep Apnea Thyroid Problem Hyperlipidemia Hypertension VACCINATIONS Encounter Details Date Type Department Care Team Description 08/17/2020 Office Visit [facility] Valentin Andersen, Anxiety an d depression (Primary Dx); Pediatric and Adult Essential hypertension; Primary Care- [address] [place], [place] [address] Gastroesophageal reflux disease, unspeci fied whether esophagitis present; [address] [place] [address] Abdominal hernia without obstruction and without gangrene, recurrence not specified, unspecified hernia type; Drive, [address] [place], [place] Adjustment insomnia; [place] [address] Class 3 severe obesity due to excess cain ories with serious comorbidity and body mass index (BMI) of 40.0 to 44.9 in adult; [id number] Need for 23-polyvalent pneumococcal poly saccharide vaccine; [phone] Nicotine depend ence, cigarettes, uncomplicated (Fax) Allergies [...] with No / Unsure 08/17/2020 3:40 PM [employer] someone who was confirmed or suspected to have Coronavirus / COVID-19? documented as of this encounter Last Filed Vital Signs Vital Sign Reading Time Taken Comments Blood Pressure 118/80 08/17/2020 4:11 PM [employer] Pulse 81 08/17/2020 4:11 PM [employer] Temperature 36.6 C (97.8 F) 08/17/2020 4:11 PM [employer] Respiratory Rate 20 08/17/2020 4:11 PM [employer] Oxygen Saturation 97% 08/17/2020 4:11 PM [employer] Inhaled Oxygen Concentration - - Weight 121.6 kg (268 lb) 08/17/2020 4:11 PM [employer] Height - - Body Mass Index 39.58 11/16/2019 9:58 PM [employer] documented in this encounter Patient Instructions Patient [...] appropriate catch-up vaccines recommended by the CDC. [employer] last reviewed this educational content on 12/30/201919996198-9091 [employer]. All rights reserved. This information is not [...] 1 slice of bread, 1 cup of [id number] cereal, or a half-cup of rice, pasta, [...] hypertension, visit Your [facility] Lower[facility] Blood Pressure. 3792-0847 [employer]. [address] [place] [address]. All rights reserved. This information is not intended as a substitute for professional medical care. Always follow your healthcare professional's instructions. [employer]CHE[employer] documented in this encounter Progress Notes Valentin [...] of suicidality. Patient finds comfort in his cheondoism and by writing poetry. Patient report he [...] file Gets together: Not on file Attends mandaeism service: Not on file Active member of [...] Will start on Atorvastatin 20mg qHS with [place] 3 fatty acid supplementation. Continue dietary and [...] details. Valentin Andersen MD, MPH, AAHIVS Clinical Air Cargo Specialist Supervisor, Department of Family Medicine [facility] Primary & Specialty Care - [facility] 08/17/2020 5:01 PM Future Appointments In 2 weeks Valentin Andersen MD [facility] Pediatric and Adult Primary Care- [facility] In 1 month Valentin Andersen MD [facility] Pediatric and Adult Primary Care- [facility] [employer]CHESTRA documented in this encounter Plan of Treatment Date Type Specialty Care Team Description 09/01/2020 Office Visit Family Medicine Valentin Andersen MD [address] [place] [address] Dr O[place]eda [place], [place] [address] [phone] 10/07/2020 Office Visit Family Medicine Valentin Andersen MD [address] [place] [address] Dr O[address]eda [place], [place] [address] [phone] Health Maintenance Due Date Last Done Comments [...] PM Need for 23- polyvalent 23-VALENT (PNEUMOVAX) [employer] pneumococcal polysaccharide vaccine documented in this encounter [...] Effective Dates Phone Addre ss Type Group [facility] [id number] 2019-Present Medicaid COMM PLAN - MANAGED MEDICAID documented as of this encounter
--- OUTSIDE RECORDS SUMMARY | 2020-11-04 19:05 | XMS REPORT | Summary of Care ---
:1990 Author Organization [facility] Address [address] [place] [id number] Care Team Providers Name Role Phone Valentin Andersen MD Primary Care Provider Reason for Referral (Routine) Status Reason Specialty Diagnoses / Referred By Referred To Procedures Contact Contact New Request Dermatology Diagnoses Lipoma of upper extremity, unspecified laterality Valentin Andersen, Procedures CONSULT/REFERRAL DERMATOLOGY [address] [place] [address] [facility] [address] [place] [address] Reason for Visit Reason Comments Follow-up LUMP right armpit Anxiety Depression Hypertension Hyperlipidemia Abnormal Liver Function Tests OBESITY SMOKING Encounter Details Date Type Department Care Team Description 09/01/2020 Office Visit [place] [facility] Pediatric Valentin Andersen A nxiety and depression (Primary Dx); and Adult Primary Lipoma of upper extremity, unspecified l aterality; Care- [address] Essential hypertension; [address] [place] [address] [address]; [address], [address] [place] [address] Elevated LFTs; [place], [place] [phone] Adjustment insomnia; [id number] Acquired hypothyroidism; [phone] Nicotine depend ence due to vaping tobacco product Allergies Active Allergy Reactions Severity Noted Date Comments Amoxicillin Unknown - See comments 02/09/2019 Sulfa (Sulfonamide Antibiotics) Unknown - See comments 02/09/2019 documented as of this encounter (statuses as of 09/11/2020) Medications Medication Sig Dispensed Refills Start End Date Status Date lisinopril 20 mg Take 1 90 tablet [...] 1,200 mouth daily. mg CapIndications: High triglycerides traZODone 50 mg Take 1 30 tablet [...] and daily. depression, Nicotine dependence, cigarettes, uncomplicated SERTraline 25 mg Take 1 30 tablet 3 Act olvin tabletIndications: tablet by 0 Anxiety and mouth daily. depression hydrOXYzine 50 mg Take 1 90 tablet 1 Ac tive tabletIndications: tablet by 0 Anxiety and mouth every depression 8 (eight) hours as needed for Anxiety. terbinafine HCl 1 % Apply to 1 Tube 1 09/01/20 Discontinued creamIndications: area(s) 0 20 (P atient Pain of right great daily. Reported) toe, Onychomycosis Diagnosis: B35.1. Apply daily to right big toe nail once daily x 4 weeks. ondansetron (ZOFRAN Take 1 20 tablet 0 09/01/20 Discontinued ODT) 8 mg tablet by 0 20 (Patient disintegrating mouth every Rep orted) tabletIndications: 8 (eight) Non-intractable hours as vomiting with nausea, needed for unspecified vomiting Nausea and type Vomiting (N/V). hydrOXYzine 50 mg Take 0.5 90 tablet 1 09/01/20 Di scontinued tabletIndications: tablets by 0 20 (Reorder) Anxiety and mouth every depression 8 (eight) hours as needed for Anxiety. documented as of this encounter (statuses as of 09/11/2020) Active Problems Problem Noted Date Lipoma of upper extremity, unspecified laterality 08/30 Nicotine dependence, cigarettes, uncomplicated 020 High triglycerides 08/17/2020 Gastroesophageal reflux disease, unspecified [...] as of this encounter (statuses as of 09/11/2020) Immunizations Name Administration Dates Next Due Pneumococcal [...] been in contact with No / Unsure 09/01/2020 1:35 PM BULLET MAKER someone who was confirmed or suspected to have Coronavirus / COVID-19? documented as of this encounter Last Filed Vital Signs Vital Sign Reading Time Taken Comments Blood Pressure 119/74 09/01/2020 1:48 PM BULLET MAKER Pulse 89 09/01/2020 1:48 PM BULLET MAKER Temperature 36.7 C (98.1 F) 09/01/2020 1:48 PM BULLET MAKER Respiratory Rate 18 09/01/2020 1:48 PM BULLET MAKER Oxygen Saturation 95% 09/01/2020 1:48 PM BULLET MAKER Inhaled Oxygen Concentration - - Weight 122.5 kg (270 lb) 09/01/2020 1:48 PM BULLET MAKER Height - - Body Mass Index 39.87 11/16/2019 9:58 PM BULLET MAKER documented in this encounter Patient Instructions Patient InstructionsValentin Andersen MD - 09/01/2020 1:40 PM BULLET MAKER Patient Education What Can Cause Depression? Depression is a real, treatable illness. Certain factors can trigger it. Below are some common knowncauses. Any of these factors, or a combination of them, can make depression more likely. Sometimes depression occurs for no one clear reason. But no matter what the cause, depression can be treated. Loss or stress Depression can occur in children and adults, but it often starts in adulthood. Normal grief over a , breakup, or other loss may become depression. Life stresses such as physical abuse, job loss, or sudden change in finances can also trigger depression. In some cases, years go by before the depression sets in. Family history The tendency to develop depression seems to run in families. If one or more of your close relatives (parents, grandparents, or siblings) have had an episode of depression, you may be more likely to develop the illness, too. Drugs or alcohol Drugs and alcohol can upset the chemical balance in the brain. This can lead to an episode of depression. Some depressed people turn to drugs or alcohol to numb the pain. But in the long run, doing so just makes depression worse. Medicines Depression can be a side effect of some medicines for high blood pressure, cancer, pain, and other health problems. So tell your doctor about how you are feeling and discuss the role your medicines mayplay in your symptoms. But never stop taking one without your doctors OK. Physical illness Being sick can make anyone feel frustrated and sad. But some health problems may cause actual changes in your brain that lead to depression. Other health problems such as an underactive thyroid may be mistaken for depression. Hormones Hormones carry messages in the bloodstream. They may affect brain chemicals, leading to depression. Women may get depressed when their hormone levels change quickly, such as just before their period, after giving , or during menopause. [employer] last reviewed this educational content on 05/31/201919996322-3095 [employer]. [address] [place] [address], [place] [address]. All rights reserved. This information is not intended as a substitute for professional medical care. Always follow your healthcare professional's instructions. Patient Education Your Bodys Response to Anxiety Normal anxiety is part of the bodys natural defense system. It's an alert to a threat that is unknown, vague, or comes from your own internal fears.While youre in this state, your feelings can range from a vague sense of worry to physical sensations such as a pounding heartbeat. These feelingsmake you want to react to the threat. An anxiety response is normal in many situations. But when youhave an anxiety disorder, the same response can occur at the wrong times. Anxiety can be helpful Normal anxiety is a signal from your brain. It warns you of a threat. It's a normal response to helpyou prevent something. Or to decrease the bad effects of something you can't control. For example, anxiety is a normal response to situations that might harm your body, separate you from a loved one, or lose your job. The symptoms of anxiety can be physical and mental. How does it feel? People with anxiety may have: Dizziness Muscle tension or pain Restlessness Sleeplessness Trouble focusing Racing heartbeat Fast breathing Shaking or trembling Stomachache Diarrhea Loss of energy Sweating Cold, clammy hands Chest pain Dry mouth Anxiety can also be a problem Anxiety can become a problem when it is hard to control, occurs for months, and interferes with important parts of your life. With an anxiety disorder, your body has the response described above, but in inappropriate ways. The response a person has depends on the anxiety disorder he or she has. With some disorders, the anxiety is way out of proportion to the threat that triggers it. With others, anxiety may occur even when there isnt a clear threat or trigger. Who does it affect? Some people are more likely to have lasting anxiety than others. It tends to run in families. And itaffects more younger people than older people, and more women than men. But no age, race, or gender is immune to anxiety problems. Anxiety can be treated The good news is that the anxiety thats disrupting your life can be treated. Check with your healthcare provider and rule out any physical problems that may be causing the anxiety symptoms. If an anxiety disorder is diagnosed, seek mental healthcare. This is an illness and it can respond to treatment. Most types of anxiety disorders will respond to talk therapy (counseling) and medicines. Working with your doctor or other healthcare provider, you can develop skills to help you cope with anxiety. You can also gain the perspective you need to overcome your fears. Good sources of support or guidance can be found at your local hospital, mental health clinic, or an employee assistance program. How to cope with anxiety Here are some things you can do to cope: Do what you can. Keep in mind that you cant control everything. Change what you can. And let the rest take its course. Exercise. This is a great way to ease tension and help your body feel relaxed. Stay away from caffeine and nicotine. These can make anxiety symptoms worse. Stay sober. Don't use alcohol or unprescribed medicines. They only make things worse in the longrun. Learn more about anxiety disorders. Keep track of helpful online resources and books you can useduring stressful periods. Try stress management. Try methods such as meditation. Talk with others. Think about joining online or in-person support groups. Get help. Find professional mental health services if your symptoms can't be managed or reduced with the above methods. [employer] last reviewed this educational content on 12/30/201919996750-1001 [employer]. All rights reserved. This information is not intended as a substitute for professional medical care. Always follow your healthcare professional's instructions. Patient Education Understanding a Lipoma A lipoma is a lump under the skin thats made of fat. Its not cancer (benign). It feels soft like rubber when you press it, and in most cases it doesnt hurt. Some people have more than one. A lipoma grows slowly over time and doesnt cause many problems. Lipomas occur most often in adults from ages 40 to 60. They are more common in men. How to say it [id number] What causes a lipoma? Experts don't know yet what causes lipomas. They are still learning more. They may be partly caused by a problem in a gene. They can run in families. Familial multiple lipomatosis is when 2 or more family members have many lipomas. Symptoms of a lipoma The main symptom of a lipoma is a soft lump under the skin that doesnt hurt unless it is pressingon a nerve. It may be small, around 1/4 inch across. Or it may be larger, up to 4 inches across or more. There are different kinds of lipomas. The most common kind occurs under the skin of the shoulders, chest, back, belly, or under the arms. In some cases, a lipoma can occur on the legs. In rare cases, one may occur deeper in the body or in a muscle. Treatment for a lipoma In most cases, a lipoma doesnt need treatment. Your healthcare provider may look at it during regular checkups to see if it changes. But if the lipoma is painful or you want it removed for cosmetic reasons, it can be removed with surgery. The surgery is called excision. The lipoma will most likely not grow back after surgery. Duringsurgery, the area around the lipoma is numbed. If you have a deep lipoma, you may need medicine to numb a larger area (regional anesthesia). Or you may need medicine to put you to sleep during the procedure (general anesthesia). Then the doctor makes a cut over the area of the lipoma. He or she removes the lump of fat. The cut is then closed with stitches. Possible complications of a lipoma A large lipoma inside the body can press on organs, nerves, or other tissues and cause problems. Forexample, it can cause problems with breathing or digestion. Living with a lipoma Your healthcare provider may look at the lipoma during regular checkups to see if it changes or is causing problems. When to call your healthcare provider Call your healthcare provider right away if you have any of these: Lipoma that grows quickly, causes pain, or feels hard New lipomas [employer] last reviewed this educational content on 07/31/201819994431-9172 [employer]. All rights reserved. This information is not intended as a substitute for professional medical care. Always follow your healthcare professional's instructions. ET MAKER documented in this encounter Progress Notes Valentin Andersen MD - 09/01/2020 1:40 PM CST CC: Chief Complaint Patient presents with Follow-up LUMP right armpit Anxiety Depression Hypertension Hyperlipidemia Abnormal Liver Function Tests OBESITY SMOKING Nithin Mendoza is a 30 year old male who has a past medical history of Anxiety, Depression, Hypertension, Sleep apnea, Thyroid disease and as noted below presenting for follow-up. Patient is s/p unexpected ER visit at [facility] facility ([facility]) yesterday 07/06/2020. Patient reports his anxiety and depression are getting worse, becoming a major impediment in his life. He gets irritated and gets confused, sometimes having difficulty functioning socially. Patient reports that Fluoxetine 10 mg daily is not effective at controlling Sx, He is compliant with Wellbutrin which helps depression and smoking. Patient and his are on a waiting list to see Psychiatrist. Patient reports that he is concerned he may have bipolar disorder. Patient admits that he sometimes stays up through night, 3-4 days a week consistently, with one episode of being awake for 52 hours straight. Patient reports he was laid off due to the pandemic, started smoking marijuana " to help stress, anxiety and depression". Patient denies SI/HI/AH/VH. Continues to take Trazodone. Initially, there was improvement in sleep, but now his insomnia has returned. Still dealing with sleep apnea. Reports worsening apnea. Interested in CPAP but limited by lack of insurance coverage. He drinks caffeine-free green tea at night. Patient reports a lump present on the right axilla. Has been present for 2 years but is enlarging, denies pain discomfort. Patient reports sharp pain in the left ear when he turns his head to right. Suspects he has an infection but denies any new fever or chills. BP is controlled on arrival, on amlodipine Olmesartan 5 -20mg qDay. Patient reporting dry cough and ED starting one month after beginning lisinopril. Patient has hx prediabetic, prior A1c 5.9. he reports weight gain since the pandemic, but wants to loss weight again. Patient has HLD, most recent lab shows elevated TRIG, on Atorvastatin 20mg qHS and Fish Oil 1 Tab qDay. Patient takes levothyroxine 88 mcg qAM for hypothyroidism. Patient reports he stopped smoking 2 days after last visit, now using vape 20-30 puffs at 3mL. He has not been taking Nicotine patches. Allergies Nithin is allergic to amoxil [amoxicillin] and sulfa (sulfonamide antibiotics). Medications Outpatient Medications Prior to Visit Medication Sig Dispense Refill atorvastatin 20 mg tablet Take 1 tablet by mouth at bedtime. 90 tablet 1 buPROPion SR (WELLBUTRIN SR) 100 mg SR tablet Take 1 tablet by mouth 2 (two) times daily. 60 tablet 2 fish,bora,flax oils-om3,6,9no1 (OMEGA 3-6-9) 1,200 mg Cap Take 1 tablet by mouth daily. 90 capsule 1 omeprazole 20 mg capsule Take 1 capsule by mouth daily. 90 capsule 1 traZODone 50 mg tablet Take 1 tablet by mouth at bedtime. 30 tablet 3 levothyroxine 88 mcg tablet Take 1 tablet by mouth every morning. 90 tablet 3 amLODIPine 5 mg tablet Take 1 tablet by mouth daily. 90 tablet 3 lisinopril 20 mg tablet Take 1 tablet by mouth daily. 90 tablet 3 hydrOXYzine 50 mg tablet Take 0.5 tablets by mouth every 8 (eight) hours as needed for Anxiety. 90 tablet 1 ondansetron (ZOFRAN ODT) 8 mg disintegrating tablet [...] file Gets together: Not on file Attends confucianist service: Not on file Active member of [...] weakness and headaches. Psychiatric/Behavioral: Negative for agitation, dysphoric mood and hallucinations. The patient is nervous/anxious. Intermittent periods of anxiety. Denies SI/HI/AH/VH Endocrine: Negative for polydipsia, polyphagia and polyuria. Vital Signs BP 119/74 (BP Location: Left arm, Patient Position: Sitting, BP CUFF SIZE: Adult Medium) | Pulse 89 | Temp 36.7 C (98.1 F) (Temporal Artery) | Resp 18 | Wt 270 lb (122.5 kg) | SpO2 95% | BMI 39.87 kg/m Physical Exam Vitals signs and nursing [...] and depression noted, not in crisis, noSI/HI/AH/VH ASSESSMENT/PLAN Anxiety and Depression - Stable s/p ER visit 07/06/2020. Patient reports his anxiety is worsening, consult to psychiatrist, pending appointment. - Discontinue Fluoxetine. Continue Hydroxyzine 50 mg q8H PRN and Wellbutrin 100mg BID. Will start onZoloft 25 mg qDay - Educational handout on mental health resources provided - CONSULT/REFERRAL PSYCHIATRY ADULT. Patient is still on wait list. External options discussed with patient. Lipoma of upper extremity, unspecified laterality Located on right axilla. - Encouraged weight loss. - CONSULT/REFERRAL DERMATOLOGY Essential hypertension - Stable and controlled. Educated patient about DASH diet and encouraged him to continue weight lossand lifestyle modifications - Continue on Amlodipine 5mg qDay and Lisinopril 20mg qDay. - Patient quit smoking 3 months ago and has tried to decrease alcohol intake High triglycerides - Lab reviewed, encouraged diet and lifestyle modifications, on Atorvastatin and Fish Oil. Hypothyroidism, unspecified type - Stable. Thyroid levels WNL. - Continue levothyroxine 88 mcg PO QAM Adjustment insomnia - Anticipatory guidance discussed. - Continue Trazodone 50 mg tablet Elevated LFTs - Prior lab reviewed, discussed with patient. AST/ALT 99/58. Autoimmune workup reviewed. NANCY slightly elevated, will monitor. Obesity (BMI 35.0-39.9 without comorbidity) - Patient is prediabetic (A1C 5.9) - Patient has lost 25 lbs since 2018, and he is motivated to continue weight loss. Encouraged patient to continue regular exercise, healthy diet. Nicotine dependence due to vaping tobacco product - Anticipatory guidance and patient education provided. Benefit of smoking cessation discussed > 3 minutes Health Maintenance - Due for flu shot and pneumococcal. Patient deferred today. Educated patient about benefits of vaccinations. - Tdap UTD, completedwithin past 10 years. Return in about 3 months (around 11/30/2020), or if symptoms worsen or fail to improve. Preventive Care: Medication reconciliation, patient education and anticipatory guidance completed. All questions and concerns addressed. AVS given, handout provided. I, Favio Paredes , am scribing for, and in the presence of, Valnetin Andersen MD who performed the services described here-in. Favio Paredes, September 01, 2020, 5:34 PM IValentin MD, personally performed the services described in this documentation , as scribed by, Favio Paredes in my presence and it is both accurate and complete. Valentin Andersen MD, MPH, AAHIVS Clinical Rope Maker, Department of Family Medicine [facility] 09/01/20 5:35 PM Future Appointments In 1 month Valentin Andersen MD [facility]- [facility] In 3 months Valentin Andersen MD [facility] ET MAKER documented in this encounter Plan of Treatment Date Type Specialty Care Team Description 09/16/2020 Office Visit Surgery Francisco Grewal MD [address] [place] [address] 15 [phone] 10/07/2020 Office Visit Family Medicine Valentin Andersen MD [address] [place] [address] Dr Tomas [address] [place] [address] 15 [phone] 12/02/2020 Office Visit Family Medicine Valentin Andersen MD [address] [place] [address] Dr Tomas [address] [place] [address] 15 [phone] Health Maintenance Due Date Last Done Comments INFLUENZA VACCINE (#1) 2021 Postponed from 05/31/2020 (Pare nt Refused) DTaP,Tdap,and Td Vaccines (1 07/07/2021 Pos tponed from - Tdap) 2007 (Refu sed) Depression Screening 08/17/2021 08/17/2020, 08/17/2020 PNEUMOCOCCAL 0-64 YEARS Completed 08/17/2020 COMBINED SERIES VARICELLA VACCINES Discontinued documented as of this encounter Results Not on filedocumented in this encounter Visit Diagnoses Diagnosis Anxiety and depression - Primary Dysthymic disorder Lipoma of upper extremity, unspecified l aterality Essential hypertension Unspecified essential hypertension High triglycerides Pure hyperglyceridemia Elevated LFTs Other abnormal blood chemistry Adjustment insomnia Transient disorder of initiating or main taining sleep Acquired hypothyroidism Unspecified hypothyroidism Nicotine dependence due to vaping tobacc o product documented in this encounter Insurance Payer Benefit Plan / Subscriber ID Effective Dates Phone Addre ss Type Group [facility] [id number] 2019-Present Medicaid COMM PLAN - MANAGED MEDICAID documented as of this encounter
--- OUTSIDE RECORDS SUMMARY | 2020-11-04 19:05 | XMS REPORT | Summary of Care ---
:1990 Author Organization [facility] Address [address] [place] [address] Care Team Providers Name Role Phone Valentin Andersen MD Primary Care Provider Reason for Referral (Routine) Status Reason Specialty Diagnoses / Referred By Referred To Procedures Contact Contact New Request Dermatology Diagnoses Lipoma of upper extremity, unspecified laterality Valentin Andersen, Procedures CONSULT/REFERRAL DERMATOLOGY [address] [place] [address] [facility] [address] [place] [address] Reason for Visit Reason Comments Follow-up LUMP right armpit Anxiety Depression Hypertension Hyperlipidemia Abnormal Liver Function Tests OBESITY SMOKING Encounter Details Date Type Department Care Team Description 09/01/2020 Office Visit [facility] Pediatric Valentin Andersen A nxiety and depression (Primary Dx); and Adult Primary Lipoma of upper extremity, unspecified l aterality; Care- [address] Essential hypertension; [address] [place] [address] [address]; [address], [address] [place] [address] Elevated LFTs; [place], [place] [phone] Adjustment insomnia; [id number] Acquired hypothyroidism; [phone] Nicotine depend ence due to vaping tobacco [...] with No / Unsure 09/01/2020 1:35 PM REGIONAL VICE PRESIDENT LIFE SALES someone who was confirmed or suspected to have Coronavirus / COVID-19? documented as of this encounter Last Filed Vital Signs Vital Sign Reading Time Taken Comments Blood Pressure 119/74 09/01/2020 1:48 PM REGIONAL VICE PRESIDENT [employer] SALES Pulse 89 09/01/2020 1:48 PM REGIONAL VICE PRESIDENT [employer] SALES Temperature 36.7 C (98.1 F) 09/01/2020 1:48 PM REGIONAL VICE PRESIDENT LIFE SALES Respiratory Rate 18 09/01/2020 1:48 PM REGIONAL VICE PRESIDENT LIFE SALES Oxygen Saturation 95% 09/01/2020 1:48 PM REGIONAL VICE PRESIDENT LIFE SALES Inhaled Oxygen Concentration - - Weight 122.5 kg (270 lb) 09/01/2020 1:48 PM REGIONAL VICE PRESIDENT LIFE SALES Height - - Body Mass Index 39.87 11/16/2019 9:58 PM REGIONAL VICE PRESIDENT LIFE SALES documented in this encounter Patient Instructions Patient InstructionsValentin Andersen MD - 09/01/2020 1:40 PM REGIONAL VICE PRESIDENT LIFE SALES Patient Education What Can Cause Depression? Depression [...] StayWell last reviewed this educational content on 05/31/201919995355-5509 The [employer]. [address] [place] [address], [place] [address]. All rights reserved. This information is not [...] managed or reduced with the above methods. [employer] last reviewed this educational content on 12/30/201919998604-7799 The [employer]. All rights reserved. This information is not [...] causes pain, or feels hard New lipomas [employer] last reviewed this educational content on 07/31/201819990085-4582 [employer]. All rights reserved. This information is not intended as a substitute for professional medical care. Always follow your healthcare professional's instructions. ONAL VICE PRESIDENT [employer] SAL[employer] documented in this encounter Progress Notes Valentin [...] s/p [facility] yesterday 07/06/2020. Patient reports his anxiety and [...] file Gets together: Not on file Attends yazidi service: Not on file Active member of [...] scribing for, and in the presence of, Valentin Andersen MD who performed the services described here-in. Favio Paredes, September 01, 2020, 5:34 PM IValentin MD, personally performed the services described in this documentation , as scribed by, Favio Paredes in my presence and it is both accurate and complete. Valentin Andersen MD, MPH, AAHIVS Clinical Knife Setter Assembler, Department of Family Medicine [facility] Primary & Specialty Care - [facility] 09/01/20 5:35 PM Future Appointments In 1 month Valentin Andersen MD [facility] Pediatric and Adult Primary Care- [facility] In 3 months Valentin Andersen MD [facility] Pediatric and Adult Primary Care- [facility] ONAL VICE PRESIDENT [employer] SAL[employer] documented in this encounter Plan of Treatment Date Type Specialty Care Team Description 09/16/2020 Office Visit Surgery Francisco Grewal MD [address] [place] [address] 15 [phone] 10/07/2020 Office Visit Family Medicine Valentin Andersen MD [address] [place] [address] Dr T[address] [place] [address] 15 [phone] 12/02/2020 Office Visit Family Medicine Valentin Andersen MD [address] [place] [address] Dr Tomas [address] [place] [address] 15 [phone] Health Maintenance Due Date Last Done Comments [...] Effective Dates Phone Addre ss Type Group [facility] STAR [id number] 2019-Present Medicaid COMM PLAN - MANAGED MEDICAID documented as of this encounter
--- OUTSIDE RECORDS SUMMARY | 2020-11-04 19:05 | XMS REPORT | Summary of Care ---
:1990 Author Organization [facility] Address [address] [place] [address] Care Team Providers Name Role Phone Ned Margie [facility] Primary Care Provider Reason for Visit Reason Onset Date Comments Erroneous encounter-disregard 09/13/2020 (Routine) Status Reason Specialty Diagnoses / Procedures Referred By C ontact Referred To Contact Closed Urology Diagnoses Erectile dysfunction, unspecified erectile dysfunction type Nocturia Jessica Muñiz, Procedures CONSULT/REFERRAL UROLOGY [address] [place] [address] Phone: Encounter Details Date Type Department Care Team Description 09/18/2019 Office Visit [facility] Cancer Bob, Maricarmen, Roxie ctile dysfunction, unspecified erectile dysfunction type (Primary Dx); Center-Urologic [facility] ERRONEOUS ENCOUNTER--DISREGARD Oncology [address], [address] floor [address] [place] [address] [phone] Allergies Active Allergy Reactions Severity Noted Date Comments Amoxicillin Unknown - See comments 02/09/2019 Sulfa (Sulfonamide Antibiotics) Unknown - See comments 02/09/2019 documented as of this encounter (statuses as of 09/13/2020) Medications Medication Sig Dispensed Refills Start Date End Date Status levothyroxine 88 mcg Take 1 30 tablet 5 06/09/2019 01/15/20 2 Discontinued tabletIndications: tablet by 0 Acquired mouth every hypothyroidism morning. lisinopril 20 mg Take 1 30 tablet 5 08/22/2019 Di scontinued tabletIndications: tablet by 0 ( Alternate Essential mouth therapy) hypertension daily. amLODIPine 5 mg Take 1 30 tablet 2 08/22/2019 Dis continued tabletIndications: tablet by 0 ( Alternate Essential mouth therapy) hypertension daily. documented as of this encounter (statuses as of 09/13/2020) Active Problems Problem Noted Date Lipoma of [...] as of this encounter (statuses as of 09/13/2020) Social History Tobacco Use Types Packs/Day Years Used Date Current Every Day Smoker Cigarettes 4 15 Sta rted: 02/10/2004 Smokeless Tobacco: Never Used Alcohol Use Drinks/Week oz/Week Comments Yes occassionally Sex Assigned at Date Recorded Not on file COVID-19 Exposure Response Date Recorded In the last month, have you been in contact with No / Unsure 09/01/2020 1:35 PM EMERGENCY VEHICLE OPERATOR someone who was confirmed or suspected to have Coronavirus / COVID-19? documented as of this encounter Last Filed Vital Signs Not on filedocumented in this encounter Progress Notes Maricarmen Rojas GNP - 09/18/2019 3:00 PM EMERGENCY VEHICLE OPERATOR This encounter was opened in error. Please disregard. documented in this encounter Plan of Treatment Date Type Specialty Care Team Description 09/16/2020 Office Visit Surgery Francisco Grewal MD [address] [place] [address] [place], [place] [address] [phone] 10/07/2020 Office Visit Family Medicine Valentin Andersen MD [address] [place] [address] Dr Tomas [address] [place], [place] [address] 12/02/2020 Office Visit Family Medicine Valentin Andersen MD [address] [place] [address] Dr T[address] [place], [place] [id number] 15 Health Maintenance Due Date Last Done Comments INFLUENZA VACCINE (#1) 2021 Postponed from 05/31/2020 (Pare nt Refused) DTaP,Tdap,and Td Vaccines (1 07/07/2021 Pos tponed from - Tdap) 2007 (Refu sed) Depression Screening 08/17/2021 08/17/2020, 08/17/2020 PNEUMOCOCCAL 0-64 YEARS Completed 08/17/2020 COMBINED SERIES VARICELLA VACCINES Discontinued documented as of this encounter Results Not on filedocumented in this encounter Visit Diagnoses Diagnosis Erectile dysfunction, unspecified erecti le dysfunction type - Primary ERRONEOUS ENCOUNTER--DISREGARD documented in this encounter Insurance Payer Benefit Plan / Subscriber ID Effective Dates Phone Addre ss Type Group [facility] STAR [id number] 2019-Present Medicaid COMM PLAN - MANAGED MEDICAID documented as of this encounter
--- OUTSIDE RECORDS SUMMARY | 2020-11-04 19:06 | XMS REPORT | Summary of Care ---
:1990 Author Organization [facility] Address [address] [place] [address] Care Team Providers Name Role Phone Ned Margie [facility] Primary Care Provider Reason for Visit Reason Onset Date Comments Erroneous encounter-disregard 09/13/2020 (Routine) Status Reason Specialty Diagnoses / Procedures Referred By C ontact Referred To Contact Closed Urology Diagnoses Erectile dysfunction, unspecified erectile dysfunction type Nocturia Jessica Muñiz, Procedures CONSULT/REFERRAL UROLOGY [address] [place] [address] Phone: Encounter Details Date Type Department Care Team Description 09/18/2019 Office Visit [facility] Cancer Bob, Maricarmen, Roxie ctile dysfunction, unspecified erectile dysfunction type (Primary Dx); Center-Urologic [facility] ERRONEOUS ENCOUNTER--DISREGARD Oncology [address] [place] [address] [phone] Allergies Active Allergy Reactions Severity Noted Date [...] with No / Unsure 09/01/2020 1:35 PM QUILL STRIPPER someone who was confirmed or suspected to have Coronavirus / COVID-19? documented as of this encounter Last Filed Vital Signs Not on filedocumented in this encounter Progress Notes Maricarmen Rojas GNP - 09/18/2019 3:00 PM QUILL STRIPPER This encounter was opened in error. Please disregard. documented in this encounter Plan of Treatment Date Type Specialty Care Team Description 09/16/2020 Office Visit Surgery Francisco Grewal MD [address] [place] [address] [place] [address] [phone] 10/07/2020 Office Visit Family Medicine Valentin Andersen MD [address] [place] [address] Dr Tomas [address] [place] [address] 12/02/2020 Office Visit Family Medicine Valentin Andersen MD [address] [place] [address] Dr Tomas [address] [place], [place] [phone] 15 Health Maintenance Due Date Last Done [...] Effective Dates Phone Addre ss Type Group [facility] STAR [id number] 2019-Present Medicaid COMM PLAN - MANAGED MEDICAID documented as of this encounter
--- OUTSIDE RECORDS SUMMARY | 2020-11-04 19:06 | XMS REPORT | Summary of Care ---
:1990 Author Organization [facility] Address [address] [place] [address] Care Team Providers Name Role Phone Valentin Andersen MD Primary Care Provider Encounter Details Date Type Department Care Team Description 09/16/2020 Prep For Surgery [facility] Urology- Gramm, Namita A, Ventral hernia [place] [employer] without obstruction [address] or gangren e (Primary Drive Drive Dx) [address] [place] [address] [phone] Allergies Active Allergy Reactions Severity Noted Date Comments Amoxicillin Unknown - See comments 02/09/2019 Sulfa (Sulfonamide Antibiotics) Unknown - See comments 02/09/2019 documented as of this encounter (statuses as of 09/16/2020) Medications Medication Sig Dispensed Refills Start Date End Date Status lisinopril 20 mg Take 1 tablet 90 tablet 3 01/28/2020 Active tabletIndications: by mouth daily. Essential hypertension amLODIPine 5 mg Take 1 tablet 90 tablet 3 01/28/2020 Active tabletIndications: by mouth daily. Essential hypertension levothyroxine 88 mcg Take 1 tablet 90 tablet 3 07/07/2020 Active tabletIndications: by mouth every Acquired hypothyroidism morning. omeprazole 20 mg Take 1 capsule 90 capsule 1 08/17/2020 Active capsuleIndications: by mouth daily. Gastroesophageal reflux disease, unspecified whether esophagitis present fish,bora,flax Take 1 tablet 90 capsule 1 08/17/2020 Active oils-om3,6,9no1 (OMEGA by mouth daily. 3-6-9) 1,200 mg CapIndications: High triglycerides traZODone 50 mg Take 1 tablet 30 tablet 3 08/17/2020 Active tabletIndications: by mouth at Anxiety and depression, bedtime. Adjustment insomnia atorvastatin 20 mg Take 1 tablet 90 tablet 1 08/17/2020 Active tabletIndications: High by mouth at triglycerides bedtime. buPROPion SR (WELLBUTRIN Take 1 tablet 60 tablet 2 08/17/2020 Active SR) 100 mg SR by mouth 2 tabletIndications: (two) times Anxiety and depression, daily. Nicotine dependence, cigarettes, uncomplicated SERTraline 25 mg Take 1 tablet 30 tablet 3 09/01/2020 Active tabletIndications: by mouth daily. Anxiety and depression hydrOXYzine 50 mg Take 1 tablet 90 tablet 1 09/01/2020 Active tabletIndications: by mouth every Anxiety and depression 8 (eight) hours as needed for Anxiety. documented as of this encounter (statuses as of 09/16/2020) Active Problems Problem Noted Date Lipoma of [...] as of this encounter (statuses as of 09/16/2020) Immunizations Name Administration Dates Next Due Pneumococcal [...] been in contact with No / Unsure 09/16/2020 10:03 AM WARP DRESSER someone who was confirmed or suspected to have Coronavirus / COVID-19? documented as of this encounter Last Filed Vital Signs Not on filedocumented in this encounter Plan of Treatment Date Type Specialty Care Team Description 10/07/2020 Office Visit Family Medicine Valentin Andersen MD [address] [place] [address] Dr Tomas [address] [place], [place] [address] 12/02/2020 Office Visit Family Medicine Valentin Andersen MD [address] [place] [address] Dr Tomas [address] [place], [place] [address] Health Maintenance Due Date Last Done Comments INFLUENZA VACCINE (#1) 2021 Postponed from 05/31/2020 (Pare nt Refused) DTaP,Tdap,and Td Vaccines (1 07/07/2021 Pos tponed from - Tdap) 2007 (Refu sed) Depression Screening 08/17/2021 08/17/2020, 08/17/2020 PNEUMOCOCCAL 0-64 YEARS Completed 08/17/2020 COMBINED SERIES VARICELLA VACCINES Discontinued documented as of this encounter Results Not on filedocumented in this encounter Visit Diagnoses Diagnosis Ventral hernia without obstruction or ga ngrene - Primary Ventral hernia, unspecified, without men tion of obstruction or gangrene documented in this encounter Insurance Payer Benefit Plan / Subscriber ID Effective Dates Phone Addre ss Type Group [facility] [id number] 2019-Present Medicaid COMM PLAN - MANAGED MEDICAID documented as of this encounter
--- OUTSIDE RECORDS SUMMARY | 2020-11-04 19:07 | XMS REPORT | Summary of Care ---
:1990 Author Organization [facility] Address [address] [place] [address] Care Team Providers Name Role Phone Valentin Andersen MD Primary Care Provider Reason for Visit Reason Comments New Patient umbilical hernia (Routine) Status Reason Specialty Diagnoses / Referred By Referred To Procedures Contact Contact Authorized Surgery Diagnoses Abdominal hernia without obstruction and without gangrene, recurrence not specified, unspecified hernia type Valentin Andersen, Procedures CONSULT/REFERRAL GENERAL SURGERY MD [address] [place] [address] Dr Thom [address] [place], [place] [address] Encounter Details Date Type Department Care Team Description 09/16/2020 Office Visit [facility] Francisco Edmondson Ventral hernia Surgery- Eder Blair MD without obstruction [address] [place] [address] [address] [place] [address] or gangrene (Primary [address] Dr Dx) [place], [place] [phone] Allergies Active Allergy Reactions Severity Noted Date Comments Amoxicillin Unknown - See comments 02/09/2019 Sulfa (Sulfonamide Antibiotics) Unknown - See comments 02/09/2019 documented as of this encounter (statuses as of 09/19/2020) Medications Medication Sig Dispensed Refills Start Date [...] as of this encounter (statuses as of 09/19/2020) Active Problems Problem Noted Date Ventral hernia without obstruction or gangrene 020 Overview: Added automatically from request for aliza arias [id number] Lipoma of upper extremity, unspecified laterality 08/30 [...] as of this encounter (statuses as of 09/19/2020) Immunizations Name Administration Dates Next Due Pneumococcal [...] with No / Unsure 09/16/2020 10:03 AM JEWEL SAWYER someone who was confirmed or suspected to have Coronavirus / COVID-19? documented as of this encounter Last Filed Vital Signs Vital Sign Reading Time Taken Comments Blood Pressure 135/74 09/16/2020 10:12 AM JEWEL SAWYER Pulse 80 09/16/2020 10:12 AM JEWEL SAWYER Temperature 36.8 C (98.3 F) 09/16/2020 10:12 AM JEWEL SAWYER Respiratory Rate 20 09/16/2020 10:12 AM JEWEL SAWYER Oxygen Saturation 98% 09/16/2020 10:12 AM JEWEL SAWYER Inhaled Oxygen Concentration - - Weight 124.3 kg (274 lb) 09/16/2020 10:12 AM JEWEL SAWYER Height 170.2 cm (5' 7") 09/16/2020 10:12 AM JEWEL SAWYER Body Mass Index 42.91 09/16/2020 10:12 AM JEWEL SAWYER documented in this encounter Progress Notes Francisco Grewal MD - 09/16/2020 10:15 AM CST Surgery = 30 year old male with complaint of small reducible supraumbilical hernia. Increasing sxs. No evidence of obstruction. Several other non-debilitating health issues. Px 1.5 cm reducible suprumbilical hernia. Otherwise no other evidence of herniation, masses or tenderness. He wishes repair - I have explained to him the planned procedure, risks (including recurrence) and benefits to Mr Mendoza - He understands and consents. Valentin Robin MD [facility] Anxiety and depression +7 more Dx Follow-up , LUMP , Anxiety , Depression , Hypertension , Hyperlipidemia , Abnormal Liver Function Tests , OBESITY , SMOKING Reason for Visit Progress Notes Expand All Collapse All CC: Chief Complaint Patient presents with Follow-up LUMP right armpit Anxiety Depression Hypertension Hyperlipidemia Abnormal Liver Function Tests OBESITY SMOKING Nithin Mendoza is a 30 year old male who has a past medical history of Anxiety, Depression, Hypertension, Sleep apnea, Thyroid disease and as noted below presenting for follow-up. Patient is s/p unexpected [facility] at [facility] yesterday 07/06/2020. Patient reports his anxiety and [...] amoxil [amoxicillin] and sulfa (sulfonamide antibiotics). Medications Medications Prior to Visit Outpatient Medications Prior to Visit Medication Sig [...] file Gets together: Not on file Attends mosque service: Not on file Active member of [...] and concerns addressed. AVS given, handout provided. Favio Graham , am scribing for, and in the presence of, Vlaentin Andersen MD who performed the services described here-in. Favio Paredes, September 01, 2020, 5:34 PM IValentin MD, personally performed the services described in this documentation , as scribed by, Favio Paredes in my presence and it is both accurate and complete. Valentin Andersen MD, MPH, [facility] Clinical Cdl Flatbed Truck Driver, Department of Family Medicine [facility] Primary & Specialty Care- [facility] L SAWYER Shawnee Lopez RN - 09/16/2020 10:15 AM CSTChsantosher Mendoza is a 30 year old male comes to clinic independent in ambulation for umbilical hernia. Pt comes alone . Pt in NAD w/ pain reported 0/10. Pt preferred language is Welsh. Pt. denies fall in last 12 months. Allergies and medications reviewed and updated. L SAWYER documented in this encounter Plan of Treatment Date Type Specialty Care Team Description 09/26/2020 Office Visit Dermatology Lenora Gaitan MD [address] [place] [address] Myles Solorzano [address] [place] [address]. [place] [address] 10/07/2020 Hospital Encounter Surgery Francisco Grewal MD without obstruction [address] [place] [address] [place] [address] [phone] 10/07/2020 Surgery Surgery Francisco Grewal VENTRAL HERNIOR RHAPHY MD Johnnie [address] [place] [address] [place], [place] [address] [phone] 10/07/2020 Office Visit Family Medicine Valentin Andersen MD [address] [place] [address] Dr Tomas [address] [place], [place] [address] [phone] 12/02/2020 Office Visit Family Medicine Valentin Andersen MD [address] [place] [address] Dr Tomas [address] [place], [place] [address] [phone] Health Maintenance Due Date Last Done Comments [...] without men tion of obstruction or gangrene Ventral hernia without obstruction or ga ngrene - Primary Ventral hernia, unspecified, without men tion of obstruction or gangrene Ventral hernia without obstruction or ga ngrene Ventral hernia, unspecified, without men tion of obstruction or gangrene documented in this encounter Insurance Payer Benefit Plan / Subscriber ID Effective Dates Phone Addre ss Type Group [facility] [id number] 2019-Present Medicaid COMM PLAN - MANAGED MEDICAID documented as of this encounter
--- OUTSIDE RECORDS SUMMARY | 2020-11-04 19:07 | XMS REPORT | Summary of Care ---
:1990 Author Organization [facility] - [facility] Address [address] [place] [address] Care Team Providers Name Role Phone Valentni Andersen MD Primary Care Provider Reason for Visit Reason Comments New Patient umbilical hernia (Routine) Status Reason Specialty Diagnoses / Referred By Referred To Procedures Contact Contact Authorized Surgery Diagnoses Abdominal hernia without obstruction and without gangrene, recurrence not specified, unspecified hernia type Valentin Andersen, Procedures CONSULT/REFERRAL GENERAL SURGERY MD [address] [place] [address] Dr Thom [address] [place], [place] [address] Encounter Details Date Type Department Care Team Description 09/16/2020 Office Visit [facility] Francisco Edmondson Ventral hernia Surgery- Eder Blair MD without obstruction [address] [place] [address] [address] [place] [address] or gangrene (Primary [address] Dr Dx) [place], [place] [phone] Allergies Active Allergy Reactions Severity Noted Date [...] Added automatically from request for aliza arias [id number] Lipoma of upper extremity, unspecified laterality 08/30 [...] with No / Unsure 09/16/2020 10:03 AM INTERNATIONAL MARKETING COORDINATOR someone who was confirmed or suspected to have Coronavirus / COVID-19? documented as of this encounter Last Filed Vital Signs Vital Sign Reading Time Taken Comments Blood Pressure 135/74 09/16/2020 10:12 AM INTERNATIONAL MARKETING COORDINATOR Pulse 80 09/16/2020 10:12 AM INTERNATIONAL MARKETING COORDINATOR Temperature 36.8 C (98.3 F) 09/16/2020 10:12 AM INTERNATIONAL MARKETING COORDINATOR Respiratory Rate 20 09/16/2020 10:12 AM INTERNATIONAL MARKETING COORDINATOR Oxygen Saturation 98% 09/16/2020 10:12 AM INTERNATIONAL MARKETING COORDINATOR Inhaled Oxygen Concentration - - Weight 124.3 kg (274 lb) 09/16/2020 10:12 AM INTERNATIONAL MARKETING COORDINATOR Height 170.2 cm (5' 7") 09/16/2020 10:12 AM INTERNATIONAL MARKETING COORDINATOR Body Mass Index 42.91 09/16/2020 10:12 AM INTERNATIONAL MARKETING COORDINATOR documented in this encounter Progress Notes Francisco [...] s/p [facility] yesterday 07/06/2020. Patient reports his anxiety [...] file Gets together: Not on file Attends islam service: Not on file Active member of [...] accurate and complete. Valentin Andersen MD, MPH, [facility] Clinical Derrick Engineer, Department of Family Medicine [facility] Primary & Specialty Care- ADC RNATIONAL MARKETING COORDINATOR Shawnee Lopez RN - 09/16/2020 10:15 AM CSTChsantosher Mendoza is a 30 year old male comes to clinic independent in ambulation for umbilical hernia. Pt comes alone . Pt in NAD w/ pain reported 0/10. Pt preferred language is Wolof. Pt. denies fall in last 12 months. Allergies and medications reviewed and updated. RNATIONAL MARKETING COORDINATOR documented in this encounter Plan of Treatment Date Type Specialty Care Team Description 09/26/2020 Office Visit Dermatology Lenora Gaitan MD [address] [place] [phone] Myles Solorzano [address] [place] [address]. [place] [address] 10/07/2020 Hospital Encounter Surgery Francisco Grewal MD without obstruction [address] [place] [address] [place] [address] [phone] 10/07/2020 Surgery Surgery Francisco Grewal VENTRAL HERNIOR RHAPHY MD Johnnie [address] [place] [address] [place], [place] [address] [phone] 10/07/2020 Office Visit Family Medicine Valentin Andersen MD [address] [place] [address] Dr Tomas [address] [place], [place] [address] [phone] 12/02/2020 Office Visit Family Medicine Valentin Andersen MD [address] [place] [address] Dr Tomas [address] [place], [place] [address] [phone] Health Maintenance Due Date Last Done Comments [...] Effective Dates Phone Addre ss Type Group [facility] [id number] 2019-Present Medicaid COMM PLAN - MANAGED MEDICAID documented as of this encounter
--- OUTSIDE RECORDS SUMMARY | 2020-11-04 19:07 | XMS REPORT | Summary of Care ---
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 Lenora Gaitan Procedures CONSULT/REFERRAL PLASTIC SURGERY MD Bessy [address] [place] [phone] Reason for Visit Reason Comments Cyst (Routine) Status Reason Specialty Diagnoses / Referred By Referred To Procedures Contact Contact New Request Dermatology Diagnoses Lipoma of upper extremity, unspecified laterality Valentin Andersen, Procedures CONSULT/REFERRAL DERMATOLOGY [address] [place] [address] Dr Tomas [address] [place] [address] Encounter Details Date Type Department Care Team Description 09/26/2020 Office Visit [facility] Lenora Gaitan MD [address] [place] [phone] Neoplasm of uncertain Dermatology, Myles Denise [address] [place] [phone] behavior of soft City tissues of axilla 26[address] [facility] (Primary D x) South, [place] [address] Allergies Active Allergy Reactions Severity Noted Date Comments Amoxicillin Unknown - See comments 02/09/2019 Sulfa (Sulfonamide Antibiotics) Unknown - See comments 02/09/2019 documented as of this encounter (statuses as of 09/26/2020) Medications Medication Sig Dispensed Refills Start Date [...] as of this encounter (statuses as of 09/26/2020) Active Problems Problem Noted Date Ventral hernia without obstruction or gangrene 020 Overview: Added automatically from request for aliza arias [id number] Lipoma of upper extremity, unspecified laterality 08/30 [...] as of this encounter (statuses as of 09/26/2020) Immunizations Name Administration Dates Next Due Pneumococcal [...] been in contact with No / Unsure 09/26/2020 10:47 AM TICKET CLERK someone who was confirmed or suspected to have Coronavirus / COVID-19? documented as of this encounter Last Filed Vital Signs Not on filedocumented in this encounter Progress Notes Myles Solorzano - 09/26/2020 11:15 AM CST Chief Complaint: spot in right axillae History of Present Illness: Nithin Mendoza is a 30 year old male here for evaluation of: - a large growth on his R axillae, present for about a year. He states it is slowly enlarging and about the size of a grapefruit now. Denies pain or pruritus. No attempted treatments. Social History: lives in [place] (-) Personal history of skin cancer (+) = positive (-) = negative Review of Systems: Constitutional: (-) pain Integumentary: (-) itching (-) color change (+) growth (-) rash Hem/Lymph: (-) bleeding Past Medical History: Diagnosis Date Anxiety Depression Hypertension Sleep apnea Thyroid disease hypothyroid Current Outpatient Medications on File Prior to Visit Medication Sig Dispense Refill hydrOXYzine 50 mg tablet Take 1 tablet by mouth every 8 (eight) hours as needed for Anxiety. 90 tablet 1 SERTraline 25 mg tablet Take 1 tablet by mouth daily. 30 tablet 3 atorvastatin 20 mg tablet Take 1 tablet [...] tablet by mouth daily. 90 tablet 3 No current facility-administered medications on file prior to visit. No past surgical history on file. Family History Problem Relation Age of Onset Diabetes Maternal Grandmother Heart Maternal Grandfather Social History Socioeconomic History Marital status: Spouse [...] file Gets together: Not on file Attends uatsdin service: Not on file Active member of [...] file Social History Narrative Not on file Physical Exam There were no vitals filed for this visit. (-) = negative/no exam findings General: Awake, alert, no acute distress. Appears well-developed and well-nourished. Neurological/Psychiatric: Normal mood, affect, behavior, speech, and thought process. Skin: warm, dry (-)=Negative,(+)=Positive Actinic Keratosis (A): erythematous scaling papules Marie Hemaniogioma (CH): smooth red and purple papules Dermatitis Erythema (DE): mild to moderate erythema and scaling Dermatitis Lichenified (DL): lichenification and thickening Dermatitis Weeping (DW): weeping and excoriation Inflamed Seborrheic Keratosis (ISK): inflamed warty brown papules and plaques Millium (ML): Small white cystic papule Molluscum Contagiosum (MC): umbilicated papule Nevus Macular (NM): well circumscribed evenly pigmented macule Nevus Papular (MANAGER MECHANICAL): well circumscribed evenly pigmented papule Psoriasis Circumscribed (PC): well circumscribed erythema and scaling Psoriasis Diffuse (PD): diffuse patches of erythema and scaling Seborrheic Keratosis (SK): verrucous brown papules and plaques Scar (SR): cicatricial change Verruca Vulgarus (W): warty hyperkeratotic papule Assessment and Plan 1. Subcutaneous mass: R axillae - Etiology and treatment options discussed - DDX: Lipoma vs other - Discussed ordering imaging vs referring to surgery; will refer to surgery for further work up and discussion of treatment options - Referral to plastic surgery placed Return PRN Myles Solorzano MD Dermatology PGY-4 09/26/2020 11:57 AM documented in this encounter Plan of Treatment Date Type Specialty Care Team Description 10/06/2020 Laboratory Only Clinical Medical Walker, Francisco payne MD [address] [place] [address] [place] [address] [phone] Laboratory Only, Adc Test 10/07/2020 Hospital Encounter Surgery Francisco Grewal h allen Blair MD without obstruction [address] [place] [address] [place], [place] [address] [phone] 10/07/2020 Anesthesia Event Surgery Donis Tong, [address] [address] [phone] 10/07/2020 Surgery Surgery Francisco Grewal MD HERNIORRHAPHY [address] [place] [address] [place], [place] [address] [phone] 10/07/2020 Office Visit Family [facility] Valentin Andersen MD [address] [place] [address] Dr Tomas [address] [place] [address] [phone] 12/02/2020 Office Visit Family Medicine Valentin Andersen MD [address] [place] [address] Dr T[address] [place], [place] [address], [place] [address] Health Maintenance Due Date [...] without men tion of obstruction or gangrene Neoplasm of uncertain behavior of soft t issues of axilla - Primary Ventral hernia without obstruction or ga ngrene Ventral hernia, unspecified, without men tion of obstruction or gangrene documented in this encounter Insurance Payer Benefit Plan / Subscriber ID Effective Dates Phone Addre ss Type Group [facility] [id number] 2019-Present Medicaid COMM PLAN - MANAGED MEDICAID documented as of this encounter
--- OUTSIDE RECORDS SUMMARY | 2020-11-04 19:08 | XMS REPORT | Summary of Care ---
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 Lenora Gaitan Procedures CONSULT/REFERRAL PLASTIC SURGERY MD Bessy [address] [place] [phone] Reason for Visit Reason Comments Cyst (Routine) Status Reason Specialty Diagnoses / Referred By Referred To Procedures Contact Contact New Request Dermatology Diagnoses Lipoma of upper extremity, unspecified laterality Valentin Andersen, Procedures CONSULT/REFERRAL DERMATOLOGY [address] [place] [address] Dr Tomas [address] [place] [address] Encounter Details Date Type Department Care Team Description 09/26/2020 Office Visit [facility] Lenora Gaitan MD [address] [place] [phone] Neoplasm of uncertain Dermatology, Myles Denise [address] [place] [phone] behavior of soft City tissues of axilla 26[address] [facility] (Primary D x) South, [place] [address] Allergies Active Allergy Reactions Severity [...] Added automatically from request for aliza arias [id number] Lipoma of upper extremity, unspecified laterality 08/30 [...] with No / Unsure 09/26/2020 10:47 AM FLOWER BUNCHER OR PICKER someone who was confirmed or suspected to [...] No attempted treatments. Social History: lives in [place] (-) Personal history of skin cancer (+) [...] file Gets together: Not on file Attends gnosticist service: Not on file Active member of [...] well circumscribed evenly pigmented macule Nevus Papular (CERTIFIED SHORTHAND REPORTER): well circumscribed evenly pigmented papule Psoriasis Circumscribed [...] Only Clinical Medical Walker, Francisco payne MD [address] [place] [address] [place] [address] [phone] Laboratory Only, Adc Test 10/07/2020 Hospital Encounter Surgery Francisco Grewal h allen Blair MD without obstruction [address] [place] [address] [place], [place] [address] [phone] 10/07/2020 Anesthesia Event Surgery Donis Tong, [address] [address] [phone] 10/07/2020 Surgery Surgery Francisco Grewal MD HERNIORRHAPHY [address] [place] [address] [place], [place] [address] [phone] 10/07/2020 Office Visit Family [facility] Valentin Andersen MD [address] [place] [address] Dr Tomas [address] [place] [address] [phone] 12/02/2020 Office Visit Family Medicine Valentin Andersen MD [address] [place] [address] Dr T[address] [place], [place] [address] [address] Health Maintenance Due Date [...] Effective Dates Phone Addre ss Type Group [facility] [id number] 2019-Present Medicaid COMM PLAN - MANAGED MEDICAID documented as of this encounter
--- OUTSIDE RECORDS SUMMARY | 2020-11-04 19:09 | XMS REPORT | Summary of Care ---
:1990 Author Organization [facility] - Health Address [address] [place] [address] Care Team Providers Name Role Phone Valentin Andersen MD Primary Care Provider Encounter Details Date Type Department Care Team Description 10/07/2020 Orders Only [facility] Doctor Unassigned, No [address] [facility] [place] [address] [address] [place] [address] Allergies Active Allergy Reactions Severity Noted Date Comments Amoxicillin Rash High 02/09/2019 Sulfa (Sulfonamide Antibiotics) Rash High 9 documented as of this encounter (statuses as of 10/07/2020) Medications Medication Sig Dispensed Refills Start Date [...] 8 (eight) hours as needed for Anxiety. ibuprofen 800 mg Take 1 tablet 30 tablet 0 10/07/2020 Active tabletIndications: by mouth every Ventral hernia without 6 (six) hours. obstruction or gangrene acetaminophen 500 mg Take 1 tablet 30 tablet 0 10/07/2020 Active tabletIndications: by mouth every Ventral hernia without 6 (six) hours obstruction or gangrene as needed for Pain. documented as of this encounter (statuses as of 10/07/2020) Active Problems Problem Noted Date Ventral hernia without obstruction or gangrene 020 Overview: Added automatically from request for aliza arias [id number] Lipoma of upper extremity, unspecified laterality 08/30 [...] as of this encounter (statuses as of 10/07/2020) Immunizations Name Administration Dates Next Due Pneumococcal [...] been in contact with No / Unsure 10/07/2020 7:51 AM NC MACHINIST someone who was confirmed or suspected to have Coronavirus / COVID-19? documented as of this encounter Last Filed Vital Signs Not on filedocumented in this encounter Plan of Treatment Date Type Specialty Care Team Description 10/28/2020 Office Visit Surgery Franicsco Grewal MD [address] [place] [address] [place], [place] [address] 12/02/2020 Office Visit Family Medicine Valentin Andersen MD [address] [place] [address] Dr Tomas [address] [place] [address] Health Maintenance Due Date Last Done Comments INFLUENZA VACCINE (#1) 2021 Postponed from 05/31/2020 (Pare nt Refused) DTaP,Tdap,and Td Vaccines (1 07/07/2021 Pos tponed from - Tdap) 2007 (Refu sed) Depression Screening 10/07/2021 10/07/2020, 08/17/2020 PNEUMOCOCCAL 0-64 YEARS Completed 08/17/2020 COMBINED SERIES VARICELLA VACCINES Discontinued documented as of this encounter Implants Implanted Type Area Guidance Consultant Device Shelf Model / Identifier Expiration Date Ser ial / Lot Mesh Proceed Ventral Patch Ethicon #Pvps - Sna MESH Eth icon 06/29/2021 PVPS / Implanted: Qty: 1 on 10/07/2020 by Francisco Horn MD at [facility] NA / [id number] documented as of this encounter Procedures Procedure Name Priority Date/Time Associated Diagnosis Comme nts DAY SURGERY - ADC Routine 10/07/2020 12:01 AM NC MACHINIST documented in this encounter Results Not on filedocumented in this encounter Additional Health Concerns Infection Onset Date Last Indicated Resolved Time COVID-19 Rule Out 10/07/2020 10/07/2020 10/07/2020 8: 10 AM NC MACHINIST documented as of this encounter Insurance Payer Benefit Plan / Subscriber ID Effective Dates Phone Addre ss Type Group [facility] [id number] 2019-Present Medicaid COMM PLAN - MANAGED MEDICAID documented as of this encounter
--- OUTSIDE RECORDS SUMMARY | 2020-11-04 19:09 | XMS REPORT | Summary of Care ---
:1990 Author Organization [facility] Address [address] [place] [id number] Care Team Providers Name Role Phone Valentin Andersen MD Primary Care Provider Reason for Visit Reason Comments POST-OP Other (Routine) Status Reason Specialty Diagnoses / Procedures Referred By C ontact Referred To Contact Closed Surgery Diagnoses Ventral hernia without obstruction or gangrene Abhinav Harris John Procedures Discharge Follow-up: Specialty Provider ABHINAV HARRIS; 2 Weeks MD Johnnie Blair MD [address] [place] [address] Gaines, [address] [address] Phone: Fax: Encounter Details Date Type Department Care Team Description 10/28/2020 Office Visit [facility] General Abhinav Harris Ventral hernia Surgery- Eder Blair MD without obstruction [address] [place] [address] [address] [place] [address] or gangrene (Primary [address] Dr Dx) [place], [place] [phone] Allergies Active Allergy Reactions Severity Noted Date Comments Amoxicillin Rash High 02/09/2019 Sulfa (Sulfonamide Antibiotics) Rash High 9 documented as of this encounter (statuses as of 10/30/2020) Medications Medication Sig Dispensed Refills Start Date [...] as of this encounter (statuses as of 10/30/2020) Active Problems Problem Noted Date Ventral hernia without obstruction or gangrene 020 Overview: Added automatically from request for aliza juana [id number] Lipoma of upper extremity, unspecified laterality 08/30 [...] as of this encounter (statuses as of 10/30/2020) Immunizations Name Administration Dates Next Due Pneumococcal [...] been in contact with No / Unsure 10/28/2020 9:56 AM APPLICATION PACKAGER someone who was confirmed or suspected to have Coronavirus / COVID-19? documented as of this encounter Last Filed Vital Signs Vital Sign Reading Time Taken Comments Blood Pressure 130/90 10/28/2020 9:56 AM APPLICATION PACKAGER Pulse 84 10/28/2020 9:56 AM APPLICATION PACKAGER Temperature 36.3 C (97.4 F) 10/28/2020 9:56 AM APPLICATION PACKAGER Respiratory Rate 18 10/28/2020 9:56 AM APPLICATION PACKAGER Oxygen Saturation - - Inhaled Oxygen Concentration - - Weight 130.4 kg (287 lb 6.4 oz) 10/28/2020 9:56 AM APPLICATION PACKAGER Height 172.7 cm (5' 8") 10/28/2020 9:56 AM APPLICATION PACKAGER Body Mass Index 43.7 10/28/2020 9:56 AM APPLICATION PACKAGER documented in this encounter Progress Notes Abhinav Harris MD - 10/28/2020 10:00 AM CST GENERAL SURGERY POSTOPERATIVE CLINIC NOTE Patient Name: Nithin Mendoza Date of : 1990 Date: 10/28/2020 Surgery Date: 10/07/2020 Procedure: primary repair of umbilical hernia, mesh repair of supraumbilical hernia Subjective: Nithin Mendoza is a 30 year old male who presents for ventral herniorrhaphy postoperative follow up. He states he has been doing well since his surgery. He has not been lifting weight greater than 10 lbs. His son and take care of him. He denies pain and says the site was itchy for2 weeks, but has subsided. He has normal BM. He has been using Neosporin on the surgical site intermittently. The patient states he is healing well and is overall happy with results. Relevant ROS: denies N/V/D, constipation, fever/chills, unintentional weight loss, pain at surgical site, dysphagia, hematochezia, coughing, abdominal pain, abdominal tenderness, distention, appetite change, bloating, bowel habit change. Past Medical History: Past Medical History: Diagnosis Date Anxiety Depression Hypertension Sleep apnea Thyroid disease hypothyroid Past Surgical History: Past Surgical History: Procedure Laterality Date VENTRAL HERNIORRHAPHY N/A 10/07/2020 Surgeon: Abhinav Harris MD; Location: [facility] Allergies: Allergies Allergen Reactions Amoxil [Amoxicillin] Rash Sulfa (Sulfonamide Antibiotics) Rash Medications: Patient's Medications START taking these medications No medications on file CONTINUE taking these medications which have NOT CHANGED ACETAMINOPHEN 500 MG TABLET Take 1 tablet by mouth every 6 (six) hours as needed for Pain. AMLODIPINE 5 MG TABLET Take 1 tablet by mouth daily. ATORVASTATIN 20 MG TABLET Take 1 tablet by mouth at bedtime. BUPROPION SR (WELLBUTRIN SR) 100 MG SR TABLET Take 1 tablet by mouth 2 (two) times daily. FISH,BORA,FLAX OILS-OM3,6,9NO1 (OMEGA 3-6-9) 1,200 MG CAP Take 1 tablet by mouth daily. HYDROXYZINE 50 MG TABLET Take 1 tablet by mouth every 8 (eight) hours as needed for Anxiety. IBUPROFEN 800 MG TABLET Take 1 tablet by mouth every 6 (six) hours. LEVOTHYROXINE 88 MCG TABLET Take 1 tablet by mouth every morning. LISINOPRIL 20 MG TABLET Take 1 tablet by mouth daily. OMEPRAZOLE 20 MG CAPSULE Take 1 capsule by mouth daily. SERTRALINE 25 MG TABLET Take 1 tablet by mouth daily. TRAZODONE 50 MG TABLET Take 1 tablet by mouth at bedtime. START taking Modified Medications as Prescribed No medications on file STOP taking these medications No medications on file Current Outpatient Medications Medication Sig Dispense Refill acetaminophen 500 mg tablet Take 1 tablet by mouth every 6 (six) hours as needed for Pain. 30 tablet 0 ibuprofen 800 mg tablet Take 1 tablet by mouth every 6 (six) hours. 30 tablet 0 hydrOXYzine 50 mg tablet Take 1 tablet [...] 90 tablet 3 No current facility-administered medications for this visit. Family History: Family History Problem Relation Age of Onset Diabetes Maternal Grandmother Heart Maternal Grandfather Social History: Social History Socioeconomic History Marital status: Spouse [...] file Gets together: Not on file Attends temple service: Not on file Active member of [...] Social History Narrative Not on file Physical Exam: BP 130/90 (BP Location: Left arm, Patient Position: Sitting, BP CUFF SIZE: Adult Large) | Pulse 84| Temp 36.3 C (97.4 F) (Temporal Artery) | Resp 18 | Ht 5' 8" (1.727 m) | Wt 287 lb 6.4 oz (130.4 kg) | BMI 43.70 kg/m General: alert and oriented in no apparent distress Head: normocephalic, atraumatic Eyes: extraocular movements intact; no scleral icterus Neck: supple CV: hemodynamically stable Resp: unlabored, no increased work of breathing, equal bilateral chest rise Gi: abdomen soft, nondistended, no tenderness to palpation, no peritonitis Extremities/Musculoskeletal: moves extremities well, no edema or cyanosis Skin: skin color, texture, and turgor normal; surgical site healing well, pink and no evidence of evisceration Neuro: unremarkable without focal findings Psych: normal mood and affect; judgement intact Assessment: Nithin Mendoza is a 30 year old male who presents for a ventral herniorrhaphy (primary x 1, mesh repair x 1) and is doing well post-op. Plan: 1. Discuss surgical events with patient. 2. D/c neosporin for the surgical site. Recommended Aquaphor or Vaseline. 3. No heavy lifting for 1 more month. 4. Pt is able to return to work when he feels ready. 5. RTC 1 month Ally Hill PA-S2 I have examined Mr Mendoza and agree with the note by Ms Hill. He is up and about at normal activities. He is tolerating his diet well. His bowels are functional. His abdomen is soft and nontender. His wounds are clean and dry and healing well. Overall his course is satisfactory. His is released to driving - but no heavy lifting for 6 weeks.Follow up one month. JPW ICATION PACKAGER Oanh Valadez MA - 10/28/2020 10:00 AM CSTLjmargaret Mendoza is a 30 year old male comes to clinic independent in ambulation for POST OP. Pt comes alone . Pt in NAD w/ pain reported 0/10. Pt preferred language is Moroccan. Pt. denies fall in last 12 months. Allergies and medications reviewed and updated. [facility] [address] [place] [address] Oanh Valadez MA 10/28/2020 9:57 AM ICATION PACKAGER documented in this encounter Plan of Treatment Date Type Specialty Care Team Description 10/31/2020 Office Visit Plastic Surgery Kenneth Torres MD [address] [place] [phone] 11/25/2020 Office Visit Surgery Abhinav Harris MD [address] [place] [address] [place], [place] [address] 12/02/2020 Office Visit Family Medicine Valentin Andersen MD [address] [place] [address] Dr Tomas [address] [place] [phone] Health Maintenance Due Date Last Done Comments SARS-CoV-2 (COVID-19) 2004 Vaccine (1 of 2) INFLUENZA VACCINE (#1) 2021 Postponed from 05/31/2020 (Pare nt Refused) DTaP,Tdap,and Td Vaccines (1 07/07/2021 Pos tponed from - Tdap) 2007 (Refu sed) PNEUMOCOCCAL 0-64 YEARS 08/17/2021 08/17/2020 COMBINED SERIES (2 of 3 - PCV13) Depression Screening 10/07/2021 10/07/2020, 08/17/2020 VARICELLA VACCINES Discontinued documented as of this encounter Implants Implanted Type Area Cargo Service Agent Device Shelf Model / Identifier Expiration Date Ser ial / Lot Mesh Proceed Ventral Patch Ethicon #Pvps - Sna MESH Eth icon 06/29/2021 PVPS / Implanted: Qty: 1 on 10/07/2020 by Abhinav Horn MD at [facility] NA / [id number] documented as of this encounter Results Not on filedocumented in this encounter Visit Diagnoses Diagnosis Ventral hernia without obstruction or ga ngrene - Primary Ventral hernia, unspecified, without men tion of obstruction or gangrene documented in this encounter Insurance Payer Benefit Plan / Subscriber ID Effective Dates Phone Addre ss Type Group [facility] [id number] 2019-Present Medicaid COMM PLAN - MANAGED MEDICAID documented as of this encounter
--- OUTSIDE RECORDS SUMMARY | 2020-11-04 19:09 | XMS REPORT | Summary of Care ---
:1990 Author Organization [facility] Address [address] [place] [address] Care Team Providers Name Role Phone Valentin Andersen MD Primary Care Provider Reason for Referral Other (Routine) Status Reason Specialty Diagnoses / Referred By Referred To Procedures Contact Contact New Request Diagnoses Ventral hernia without obstruction or gangrene Abhinav Harris John Procedures Discharge Follow-up: Specialty Provider ABHINAV HARRIS; 2 Weeks MD Johnnie Blair MD [address] [place] [address] [place], [place] [address] [place], [place] Phone: [phone] Phone: Fax: Reason for Visit Auth/Cert Status Reason Specialty Diagnoses / Procedures Referred By C ontact Referred To Contact Surgery Diagnoses Ventral hernia without obstruction or gangrene Ventral hernia without obstruction or gangrene [K43.9] Adc Pre/Pacu/Post Procedures DE REPAIR INCISIONAL HERNIA,REDUCIBLE DE IMPLANT MESH HERNIA REPAIR/DEBRIDEMENT CLOSURE VENTRAL HERNIORRHAPHY 24504 - DE REPAIR INCISIONAL HERNIA,REDUCIBLE 01324 - DE IMPLANT MESH HERNIA REPAIR/DEBRIDEMENT CLOSURE [address] [place], [place] [address] Phone: Fax: Encounter Details Date Type Department Care Team Description 10/07/2020 Hospital Encounter [facility] Abhinav Rothman Ventral hernia [facility] MD Johnnie without obstruction [address] [place] [address] [place] [address] [place], [place] [phone] Allergies Active Allergy Reactions Severity Noted Date [...] Added automatically from request for aliza arias [id number] Lipoma of upper extremity, unspecified laterality 08/30 [...] with No / Unsure 10/07/2020 7:51 AM BENCH MECHANIC someone who was confirmed or suspected to have Coronavirus / COVID-19? documented as of this encounter Last Filed Vital Signs Vital Sign Reading Time Taken Comments Blood Pressure 117/78 10/07/2020 10:55 AM BENCH MECHANIC Pulse 89 10/07/2020 10:55 AM BENCH MECHANIC Temperature 36.2 C (97.1 F) 10/07/2020 10:00 AM BENCH MECHANIC Respiratory Rate 12 10/07/2020 10:55 AM BENCH MECHANIC Oxygen Saturation 93% 10/07/2020 10:55 AM BENCH MECHANIC Inhaled Oxygen Concentration - - Weight 127 kg (280 lb) 10/07/2020 7:30 AM BENCH MECHANIC Height 172.7 cm (5' 8") 10/07/2020 7:30 AM BENCH MECHANIC Body Mass Index 42.57 10/07/2020 7:30 AM BENCH MECHANIC documented in this encounter Discharge Instructions Jackelyn Egan RN - 10/07/2020 Patient Discharge Instructions Discharge date: 10/07/2020 Procedure(s): Procedure(s): VENTRAL HERNIORRHAPHY Discharge Orders Wound Care Order Comments: WOUND CARE INSTRUCTIONS Ok to shower in 24 hours. Dermabond (skin glue) will come off on its own in about a week. Do not soak or scrub incision. Ok to apply dressing if needed Discharge Activity: As Tolerated Discharge Activity: As Tolerated No Heavy Lifting for: 4 WEEKS Discharge Follow-up: Specialty Provider ABHINAV HARRIS; 2 Weeks To Provider: ABHINAV HARRIS [[id number]] Patient's Preferred Location: [place] Discharge Disposition: HOME, ([facility]HR) When (Patients with risk for unplanned readmission score over 16 or those noted as Hospital Dependent should follow up within 7 days with PCP or primary DX specialist): 2 Weeks Discharge Instructions Order Comments: - Follow up with Dr. Harris in 2 weeks in clinic - Do not lift anything >10 lbs for 4 weeks - Alternative 800mg ibuprofen and 650mg Tylenol every 3 hours. Follow instructions as indicated below: 1. The medication that was used will be acting in your system for the next 24 hours, so you might feel a little drowsy, with impaired judgment and or motor function. This feeling should go wear off. Because the medication is still in your system for the next 24 hours you SHOULD NOT: Drive a car, operate machinery or power tool. Drink any alcohol beverages (including beer or wine). Make any important decisions or sign any legal documents. 2. You should rest the remainder of the day and not engage in any physical activity. Move slowly today. After lying down, sit on the edge of the bed for a moment before standing. YOU ARE RESPONSIBLEFOR HAVING SOMEONE AT HOME WITH YOU DURING THE AFTERNOON AND NIGHT IMMEDIATELY FOLLOWING YOUR SURGERY. Patient should cough and deep breathe every 2-4 hours while awake to avoid respiratory complications. 4. Lifting: No lifting over 10 pounds for 8 weeks 5. Weight: In general, sudden weight gains or losses should be reported to your provider. Cardiac patients should weigh daily and notify their provider for a weight gain of 3 pounds per day or 5 pounds per week. 6. Tobacco Avoidance: Follow recommendations below 7. Because the medications used could procedure some residual nausea and vomiting after you go home,you should eat lightly today, starting with clear liquids (broth, soft drinks, apple juice, jello) and toast or crackers, progressing to bland solid foods and then to your normal diet as tolerated, unle ss otherwise stated by your surgeon. If you get sick, wait a couple of hours and then begin to eat. After 24 hours the nausea should be gone. 8. You may experience some pain and your physician will advise you on what to take for discomfort. This should be taken as directed. If the pain is not relieved, contact your physician. You may alsohave a sore throat from the airway that was in place. You may uses lozenges, throat spray (such as C hloraseptic), or warm salt water gargles for symptomatic relief. 9. If you feel warm, take your temperature. If it is 101 degrees or above call your physician. 10. If you are unable to urinate within five hours after your procedure, call your physician. 11. The type of surgery performed will determine how much bleeding (if any) to expect. Normally, some spotting might occur. If your dressing pad becomes saturated, notify your physician. Elevate surgical site, if applicable, to reduced swelling and pain. 12. Wound/dressing care: WOUND CARE INSTRUCTIONS Ok to shower in 24 hours. Dermabond (skin glue) will come off on its own in about a week. Do not soak or scrub incision. Ok to apply dressing if needed Tips on preventing a surgical site infection.. Dont smoke. It is best to quit at least 30 days before surgery, but quitting after surgery is also helpful. If you are diabetic, keep your blood sugar well controlled. WASH YOUR HANDS. Keep your wound clean and remember to wash your hands before and after contact with the area. All health care workers should also wash their hands or use an alcohol based hand rub prior to examining you. If antibiotics are prescribed, take them as directed. Finish the entire course of antibiotics. Call your doctor if you have signs of infection: ? Increased tenderness at the surgical site ? Red streaks or increased redness of the area ? Bad-smelling discharge from the incision ? Fever of 101F or higher ? General tired feeling that doesnt improve 13. Other discharge instructions: Follow up with Dr. Harris in 2 weeks in clinic - Do not lift anything >10 lbs for 4 weeks - Alternative 800mg ibuprofen and 650mg Tylenol every 3 hours. 14. Special Instructions: none Take Home Medications These are medications ordered for you by your healthcare provider. Do not take any other medications or supplements unless advised by your healthcare provider. Current Discharge Medication List START taking these medications Details acetaminophen 500 mg tablet Take 1 tablet by mouth every 6 (six) hours as needed for Pain. Qty: 30 tablet, Refills: 0 Associated Diagnoses: Ventral hernia without obstruction or gangrene ibuprofen 800 mg tablet Take 1 tablet by mouth every 6 (six) hours. Qty: 30 tablet, Refills: 0 Associated Diagnoses: Ventral hernia without obstruction or gangrene CONTINUE these medications which have NOT CHANGED Details hydrOXYzine 50 mg tablet Take 1 tablet by mouth every 8 (eight) hours as needed for Anxiety. Qty: 90 tablet, Refills: 1 Associated Diagnoses: Anxiety and depression SERTraline 25 mg tablet Take 1 tablet by mouth daily. Qty: 30 tablet, Refills: 3 Associated Diagnoses: Anxiety and depression atorvastatin 20 mg tablet Take 1 tablet by mouth at bedtime. Qty: 90 tablet, Refills: 1 Associated Diagnoses: High triglycerides buPROPion SR (WELLBUTRIN SR) 100 mg SR tablet Take 1 tablet by mouth 2 (two) times daily. Qty: 60 tablet, Refills: 2 Associated Diagnoses: Anxiety and depression; Nicotine dependence, cigarettes, uncomplicated fish,bora,flax oils-om3,6,9no1 (OMEGA 3-6-9) 1,200 mg Cap Take 1 tablet by mouth daily. Qty: 90 capsule, Refills: 1 Associated Diagnoses: High triglycerides omeprazole 20 mg capsule Take 1 capsule by mouth daily. Qty: 90 capsule, Refills: 1 Associated Diagnoses: Gastroesophageal reflux disease, unspecified whether esophagitis present traZODone 50 mg tablet Take 1 tablet by mouth at bedtime. Qty: 30 tablet, Refills: 3 Associated Diagnoses: Anxiety and depression; Adjustment insomnia levothyroxine 88 mcg tablet Take 1 tablet by mouth every morning. Qty: 90 tablet, Refills: 3 Associated Diagnoses: Acquired hypothyroidism amLODIPine 5 mg tablet Take 1 tablet by mouth daily. Qty: 90 tablet, Refills: 3 Associated Diagnoses: Essential hypertension lisinopril 20 mg tablet Take 1 tablet by mouth daily. Qty: 90 tablet, Refills: 3 Associated Diagnoses: Essential hypertension Follow-up appointments: Call Dr. Harris's office to make follow up appointment in 2 weeks (approx.10/21/20 For questions regarding follow-up instructions call the [employer] Hotline at or If you experience any of the following symptoms Increased tenderness at the surgical site ? Red streaks or increased redness of the area ? Bad-smelling discharge from the incision ? Fever of 101F or higher General tired feeling that doesnt improve , please follow up with [phone] For worsening symptoms/changing condition/problems or questions: Non-emergency/urgent: Call the [employer] Hotline at or Emergency: Go to the closest emergency room or call 911 If you receive the patient satisfaction survey by mail please complete and return and let us know how we are doing. TOBACCO AVOIDANCE Exposure to tobacco either from smoking or from second hand (environmental) smoke or smokeless tobacco (snuff) is damaging to your health. This information is to encourage everyone to avoid tobacco exposure. It is recommended that you: ? If you smoke or use smokeless tobacco, we encourage you to quit. ? If you have already quit smoking, continue your good work! ? If you do not smoke or use smokeless tobacco, do not start. ? Avoid secondhand smoke. Additional Resources You may want to contact these organizations for further information on smoking and how to quit. [place] [employer], http://www.lungusa.org/stop-smoking/ [place] [employer], http://www.cancer.org/Healthy/StayAwayfromTobacco/index [place] [employer], http://www.heart.org/HEARTORG/GettingHealthy/QuitSmoking/Quit-Smoking_[facility] _001085_SubHomePage.jsp AttachmentsThe following attachments cannot be sent through Care Everywhere. Traditional Repair, Having Hernia Surgery (Dutch)documented in this encounter H&P Notes Abhinav Harrsi MD - 10/07/2020 8:34 AM CSTI have examined Mr Mendoza and again discussed the planned procedure with Mr Mendoza - He understands and consents JPW alAbhinav mcdonald MD - 09/16/2020 10:15 AM CST Surgery [...] s/p unexpected ER visit at [facility]) yesterday 07/06/2020. Patient reports his anxiety and [...] file Gets together: Not on file Attends evangelical service: Not on file Active member of [...] accurate and complete. Valentin Andersen MD, MPH, [facility] Clinical Office Clerk Routine, Department of Family Medicine [facility] Primary & Specialty Care- ADC H MECHANIC documented in this encounter Miscellaneous Notes Nursing Note - Jackelyn Sky RN - 10/07/2020 8:09 AM CSTBilateral lower SCDs applied to BLE. documented in this encounter Plan of Treatment Date Type Specialty Care Team Description 10/28/2020 Office Visit Surgery Abhinav Harris MD [address] [place] [address] Dr [place], [place] [address] [phone] 12/02/2020 Office Visit Family Medicine Valentin Andersen MD [address] [place] [address] Dr [place], [place] [address] Name Type Priority Associated Diagnoses Date/Ti me LAB ONLY COVID LAB Routine 10/07/2020 7 :40 AM INTERPRETATION BENCH MECHANIC Name Type Priority Associated Diagnoses Order S chedule LAB ONLY COVID LAB Routine ONCE for 1 Oc currences INTERPRETATION starting 04/2021 until Health Maintenance Due Date Last Done Comments INFLUENZA VACCINE (#1) 2021 Postponed from 05/31/2020 (Pare nt Refused) DTaP,Tdap,and Td Vaccines (1 07/07/2021 Pos tponed from - Tdap) 2007 (Refu sed) Depression Screening 10/07/2021 10/07/2020, 08/17/2020 PNEUMOCOCCAL 0-64 YEARS Completed 08/17/2020 COMBINED SERIES VARICELLA VACCINES Discontinued documented as of this encounter Implants Implanted Type Area Play Reader Device Shelf Model / Identifier Expiration Date Ser ial / Lot Mesh Proceed Ventral Patch Ethicon #Pvps - Sna MESH Eth icon 06/29/2021 PVPS / Implanted: Qty: 1 on 10/07/2020 by Abhinav Horn MD at [facility] NA / [id number] documented as of this encounter Procedures Procedure Name Priority Date/Time Associated Comments Diagnosis COVID-19 (ID NOW STAT 10/07/2020 7:40 AM Resu lts for this RAPID TESTING) BENCH MECHANIC procedure are in the results section. DISCLOSURE AND Routine 09/16/2020 12:01 AM CONSENT, MEDICAL AND BENCH MECHANIC SURGICAL PROCEDURES documented in this encounter Results COVID-19 (ID NOW RAPID TESTING) (10/07/2020 7:40 AM BENCH MECHANIC) SARS-CoV-2 Rapid ID Not Detected Not Detected [facility] Specimen Swab - NASOPHARYNGEAL SWAB Narrative Performed At ID NOW COVID-19 Assay is an isothermal nucleic [facility] acid amplification test intended for the qualitative detection of nucleic acid from SARS-CoV-2 viral RNA in nasopharyngeal (OPERATOR/ASSISTANT FOREMAN) specimens. It is used under Emergency Use Authorization (EUA) by FDA. The limit of detection (LOD) of the assay is 125 Genome Equivalents/mL. A positive result is indicative of the presence of SARS-CoV-2 RNA. Clinical correlation with patient history and other diagnostic information is necessary to determine patient infection status. A negative (Not Detected) result does not preclude SARS-CoV-2 infection. In patients with clinical symptoms and other tests that are consistent with SARS-CoV-2 infection, negative results should be treated as presumptive negative and a new specimen should be tested with alternative PCR molecular test. Invalid: Please collect a new specimen for repeat patient testing if clinically indicated. Performing Organization Address City/State/Zipcode Phone Number [facility] CLIA: [id number] [place] [address] documented in this encounter Visit Diagnoses Diagnosis Ventral hernia without obstruction or ga ngrene - Primary Ventral hernia, unspecified, without men tion of obstruction or gangrene documented in this encounter Administered Medications Medication Order MAR Action Action Date Dose Rate Site bupivacaine liposome (PF) Given 10/07/2020 9:04 AM BENCH MECHANIC 32 mL Abdomen (EXPAREL (PF)) 1.3 % (13.3 mg/mL) 2.6 mg, cszlvgjwjnb-hvxthsgaqwe-rt (SENSORCAINE W/EPINEPHRINE) 0.5 %-1:200,000 30 mL PRN, Starting Sat10/07/20 at 0904, Intra-op FENTanyl PF (SUBLIMAZE (PF)) injection 2 5 mcg 25 mcg, Slow IV Push, Q5MIN PRN, 4 doses, Starting 10/07/20 at 1019, Until Discontinued, Routine, Pain (scale 4-6), PACU HYDROmorphone (DILAUDID) injection 0.2 m g 0.2 mg, Slow IV Push, Q5MIN PRN, 10 doses, Starting Fr i 10/07/20 at 1019, Until Discontinued, Routine, Pain (scale 7-10) , PACU, Use approved by (Faculty): PACU USE -ANESTHESIA SERVICE-HYDROMORPHONE INJECTIONS lactated ringers IV infusion 1,000 mL at 75 mL/hr, 1,000 mL, IV Infusion, CONT INUOUS, Starting 10/07/20 at 1030, Until Discontinued, Routine, PACU ondansetron (ZOFRAN (PF)) injection 4 mg 4 mg, Slow IV Push, PRN, 1 dose, Startin g 10/07/20 at 1019, Until Discontinued, Routine, Nausea and Vomiting (N/V), PACU Medication Order MAR Action Action Date Dose Rate Site lactated ringers IV infusion New Bag 10/07/2020 8:04 AM BENCH MECHANIC 1,000 mL 42 mL/hr 1,000 mL at 42 mL/hr, 1,000 mL, IV Infusion, ONCE, 1 dose, Sat10/07/20 at 0745, Routine, DSU Pre-op documented in this encounter Additional Health Concerns Infection Onset Date Last Indicated Resolved Time COVID-19 Rule Out 10/07/2020 10/07/2020 10/07/2020 8: 10 AM BENCH MECHANIC documented as of this encounter Insurance Payer Benefit Plan / Subscriber ID Effective Dates Phone Addre ss Type Group [facility] [id number] 2019-Present Medicaid COMM PLAN - MANAGED MEDICAID documented as of this encounter
--- OUTSIDE RECORDS SUMMARY | 2020-11-04 19:10 | XMS REPORT | Summary of Care ---
:1990 Author Organization [facility] Address [address] [place] [address] Care Team Providers Name Role Phone Valentin Andersen MD Primary Care Provider Reason for Visit Reason Comments POST-OP Other (Routine) Status Reason Specialty Diagnoses / Procedures Referred By C ontact Referred To Contact Closed Surgery Diagnoses Ventral hernia without obstruction or gangrene Abhinav Harris John Procedures Discharge Follow-up: Specialty Provider ABHINAV HARRIS; 2 Weeks MD Johnnie Blair MD [address] [place] [address] G[place], [address] [address] Phone: Fax: Encounter Details Date Type Department Care Team Description 10/28/2020 Office Visit [facility] General Abhinav Harris Ventral hernia Surgery- Eder Blair MD without obstruction [address] [place] [address] [address] [place] [address] or gangrene (Primary [address] Dr Dx) [place], [place] [id number] Allergies Active Allergy Reactions Severity Noted Date [...] Added automatically from request for aliza juana [id number] Lipoma of upper extremity, unspecified laterality 08/30 [...] with No / Unsure 10/28/2020 9:56 AM WAX MACHINE OPERATOR someone who was confirmed or suspected to have Coronavirus / COVID-19? documented as of this encounter Last Filed Vital Signs Vital Sign Reading Time Taken Comments Blood Pressure 130/90 10/28/2020 9:56 AM WAX MACHINE OPERATOR Pulse 84 10/28/2020 9:56 AM WAX MACHINE OPERATOR Temperature 36.3 C (97.4 F) 10/28/2020 9:56 AM WAX MACHINE OPERATOR Respiratory Rate 18 10/28/2020 9:56 AM WAX MACHINE OPERATOR Oxygen Saturation - - Inhaled Oxygen Concentration - - Weight 130.4 kg (287 lb 6.4 oz) 10/28/2020 9:56 AM WAX MACHINE OPERATOR Height 172.7 cm (5' 8") 10/28/2020 9:56 AM WAX MACHINE OPERATOR Body Mass Index 43.7 10/28/2020 9:56 AM WAX MACHINE OPERATOR documented in this encounter Progress Notes Abhinav [...] N/A 10/07/2020 Surgeon: Abhinav Harris MD; Location: [facility] Allergies: Allergies Allergen Reactions Amoxil [Amoxicillin] Rash [...] file Gets together: Not on file Attends tenriism service: Not on file Active member of [...] normal mood and affect; judgement intact Assessment: Nitihn Mendoza is a 30 year old male [...] for 6 weeks.Follow up one month. JPW MACHINE OPERATOR Oanh Valadez MA - 10/28/2020 10:00 AM CSTLjmargaret Mendoza is a 30 year old male comes to clinic independent in ambulation for POST OP. Pt comes alone . Pt in NAD w/ pain reported 0/10. Pt preferred language is Faroese. Pt. denies fall in last 12 months. Allergies and medications reviewed and updated. [facility] [address] [place] [address] Oanh Valadez MA 10/28/2020 9:57 AM MACHINE OPERATOR documented in this encounter Plan of Treatment Date Type Specialty Care Team Description 10/31/2020 Office Visit Plastic Surgery Kenneth Torres MD [address] [place] [phone] 11/25/2020 Office Visit Surgery Abhinav Harris MD [address] [place] [address] [place], [place] [address] 12/02/2020 Office Visit Family Medicine Valentin Andersen MD [address] [place] [address] Dr Tomas [address] [place] [address] Health Maintenance Due Date Last [...] of this encounter Implants Implanted Type Area Shipping & Receiving Lead Device Shelf Model / Identifier Expiration Date Ser ial / Lot Mesh Proceed Ventral Patch Ethicon #Pvps - Sna MESH Eth icon 06/29/2021 PVPS / Implanted: Qty: 1 on 10/07/2020 by Abhinav Horn MD at [facility] NA / [id number] documented as of this encounter Results Not on filedocumented in this encounter Visit Diagnoses Diagnosis Ventral hernia without obstruction or ga ngrene - Primary Ventral hernia, unspecified, without men tion of obstruction or gangrene documented in this encounter Insurance Payer Benefit Plan / Subscriber ID Effective Dates Phone Addre ss Type Group [facility] [id number] 2019-Present Medicaid COMM PLAN - MANAGED MEDICAID documented as of this encounter
--- OUTSIDE RECORDS SUMMARY | 2020-11-04 19:10 | XMS REPORT | Summary of Care ---
:1990 Author Organization [facility] - [facility] Address [address] [place] [id number] Care Team Providers Name Role Phone Valentin Andersen MD Primary Care Provider Encounter Details Date Type Department Care Team Description 11/04/2020 Emergency ADC-Emergency Depart [address] [place] [address] Allergies Active Allergy Reactions Severity Noted Date Comments Amoxicillin Rash High 02/09/2019 Sulfa (Sulfonamide Antibiotics) Rash High 9 documented as of this encounter (statuses as of 11/04/2020) Medications Medication Sig Dispensed Refills Start Date [...] as of this encounter (statuses as of 11/04/2020) Active Problems Problem Noted Date Ventral hernia without obstruction or gangrene 020 Overview: Added automatically from request for aliza juana [id number] Lipoma of upper extremity, unspecified laterality 08/30 [...] as of this encounter (statuses as of 11/04/2020) Immunizations Name Administration Dates Next Due Pneumococcal [...] been in contact with No / Unsure 11/04/2020 5:26 PM NEEDLE BOARD REPAIRER someone who was confirmed or suspected to have Coronavirus / COVID-19? documented as of this encounter Last Filed Vital Signs Not on filedocumented in this encounter Miscellaneous Notes ED Nurse Note - Kenneth Santiago RN - 11/04/2020 5:31 PM CSTCalled to [facility]. Refused care in [facility]. Got up and walked out without assistance. documented in this encounter Plan of Treatment Date Type Specialty Care Team Description 11/11/2020 Office Visit Surgery Francisco Grewal MD [address] [place], [place] [address] [phone] 11/25/2020 Office Visit Surgery Francisco Grewal MD [address] [place], [place] [address] 15 [phone] 11/30/2020 Office Visit Family Medicine Valentin Andersen MD [address] [place] [address] Dr Tomas [address] [place] [address] [phone] 12/02/2020 Office Visit Family Medicine Valentin Andersen MD [address] [place] [address] Dr T[address] [place] [address] [address] [phone] 12/12/2020 Office Visit Plastic Surgery Kenneth Torres MD [address] [place], [place] [phone] Health Maintenance Due Date Last Done Comments INFLUENZA VACCINE (#1) 2021 Postponed from 05/31/2020 (Pare nt Refused) DTaP,Tdap,and Td Vaccines (1 07/07/2021 Pos tponed from - Tdap) 2007 (Refu sed) PNEUMOCOCCAL 0-64 YEARS 08/17/2021 08/17/2020 COMBINED SERIES (2 of 3 - PCV13) Depression Screening 10/07/2021 10/07/2020, 08/17/2020 VARICELLA VACCINES Discontinued documented as of this encounter Implants Implanted Type Area Critical Care Nurse Practitioner Device Shelf Model / Identifier Expiration Date Ser ial / Lot Mesh Proceed Ventral Patch Ethicon #Pvps - Sna MESH Eth icon 06/29/2021 PVPS / Implanted: Qty: 1 on 10/07/2020 by Francisco Horn MD at [facility] NA / [id number] documented as of this encounter Procedures Procedure Name Priority Date/Time Associated Diagnosis Comme nts CONSENT/REFUSAL FOR Routine 11/04/2020 5:27 PM NEEDLE BOARD REPAIRER DIAGNOSIS AND TREATMENT documented in this encounter Results Not on filedocumented in this encounter Insurance Payer Benefit Plan / Subscriber ID Effective Dates Phone Addre ss Type Group [facility] [id number] 2019-Present Medicaid COMM PLAN - MANAGED MEDICAID documented as of this encounter
--- OUTSIDE RECORDS SUMMARY | 2020-11-04 19:11 | XMS REPORT | Summary of Care ---
:1990 Author Organization [facility] - Health Address [address] [place] [address] Care Team Providers Name Role Phone Valentin Andersen MD Primary Care Provider Reason for Visit Auth/Cert Status Reason Specialty Diagnoses / Referred By Referred To Procedures Contact Contact Emergency Medicine Adc Em ergency Dept [address] [place] [address] Fax: Encounter Details Date Type Department Care Team Description 11/04/2020 Emergency ADC-Emergency Depart ment Anthony Hernandez DO [address] [facility] 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 documented as of this encounter Last Filed Vital Signs Not on filedocumented in this encounter ED Notes Kenneth Santiago RN - 11/04/2020 5:51 PM CSTPatient previously in ED for evaluation of abdominal pain post hernia surgery. Previously patient needed wheelchair but when he was told could not accompany him to ED he stated "Fuck that, I'm leaving and Im suing every single one of you". Pt then stood up out of wheelchair and left ED. Patient then returned after speaking with , registered again and was called to triage to be seen. RN assisted patient with wheelchair as he requested. RN verbalized triage process and attempted to obtain vital signs and medical information. RN began to ask triage assessment questions to which patient refused to answer. He raised his voice and stated "Go ask my , I'm not talking." RN verbalized to patient the necessity to answer questions as this is how we begin to formulate a plan of care that is coordinated with the physician. Patient got louder and yelled "I said go ask my ." At that time charge nurse was notified. Patient did not appear in distress and was able to speak and ambulatewithout issue previously. Other RN was helping this RN obtain vital signs during triage. While this RN was notifying cosmetologist apprentice, other RN attempted to explain to patient the triage process again. Pt was not receptive and refusedteaching. He stood up out of wheelchair without assistance behaving threateningly to other RN and could be heard at other side of nurses station yelling, "I'm not fucking talking to you. I said go get my damn and ask her." At this time the physician walked over to greet patient and begin his assessment. Patient then reiterated that he "was going to owen everybody" and attempted to confront physician. At this time [place] [employer] was notified and escorted patient out. Patient left with [place] [employer] and spouse. His airway was patent and he did not appear in obvious distress. Anthony Ribera DO - 11/04/2020 5:41 PM CSTPatient previously presented to the emergency department approximately 10 minutes prior. He eloped from the ED prior to evaluation because he wanted an exemption to hospital policy regarding visitors. He ambulated without assistance. He returned shortly thereafter and observed the patient in triage not willfully answering questions. RN Donis maintained his professional demeanor and said "help me helpyou". Patient became loud and threatening to the staff and made verbal and threatening gestures. RN was pinned in triage deskand called for the charge nurse for assistance. I immediately called policeand the patient was escorted out of the building. He was speaking in full sentences, alert and oriented and did not appear in acute distress. Patient was not compliant with medical screening and a fullexamination could not be ascertained secondary to patients willful refusal to comply with usual and c ustomary requests. Called Dr. Grewal to explain situation and he said that he was three weeks out and had no complications on repeat office visit. Low probability of surgical complication. Nonetheless, informed him that he will need follow-up if possible. 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 Plan of Treatment Date Type Specialty Care Team Description 11/11/2020 Office Visit Surgery Francisco Grewal MD [address] [place] [address] [place] [address] [phone] 11/25/2020 Office Visit Surgery Francisco Grewal MD [address] [place] [address] [place], [place] [address] [phone] 11/30/2020 Office Visit Family Medicine Valentin Andersen MD [address] [place] [address] Dr T[address] [place] [address] 12/02/2020 Office Visit Family Medicine Valentin Andersen MD [address] [place] [place] [address] Dr Tomas [address] [place] [address] [phone] 12/12/2020 Office Visit Plastic Surgery Kenneth Torres MD [address] [place] [address] [phone] Health Maintenance Due Date Last Done Comments INFLUENZA VACCINE (#1) 2021 Postponed from 05/31/2020 (Pare nt Refused) DTaP,Tdap,and Td Vaccines (1 07/07/2021 Pos tponed from - Tdap) 2007 (Refu sed) PNEUMOCOCCAL 0-64 YEARS 08/17/2021 08/17/2020 COMBINED SERIES (2 of 3 - PCV13) Depression Screening 10/07/2021 10/07/2020, 08/17/2020 VARICELLA VACCINES Discontinued documented as of this encounter Implants Implanted Type Area Employment Training Specialist Device Shelf Model / Identifier Expiration Date Ser ial / Lot Mesh Proceed Ventral Patch Ethicon #Pvps - Sna MESH Eth icon 06/29/2021 PVPS / Implanted: Qty: 1 on 10/07/2020 by Francisco Horn MD at [facility] NA / [id number] documented as of this encounter Procedures Procedure Name Priority Date/Time Associated Diagnosis Comme nts CONSENT/REFUSAL FOR Routine 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
[2020-11-04] MEDS ORDERED: MORPHINE 4 MG/ML SYR ONE (20:08)
[2020-11-04] MEDS ORDERED: NA CHLORIDE 0.9% 1,000 ML ONE (20:09)
[2020-11-04] MEDS ORDERED: ONDANSETRON 4 MG/2 ML VIAL ONE (20:09)
[2020-11-04] MEDS ORDERED: FAMOTIDINE 20 MG/2 ML VIAL IV ONE (20:09)
[2020-11-04 20:16] LABS: Absolute Lymphocytes (CBC) 2.9 K/uL (0.7-4.9); Basophils % 0.7 % (0-1.3); Hematocrit 41.7 % (39.6-49.0); Lymphocytes % 26.6 % (15.3-44.8); MPV 8.9 fL (7.6-11.3); RBC Red Blood Cell Count 4.59 M/uL (4.33-5.43)
[2020-11-04 20:38] LABS: ALT/SGPT 42 U/L (12-78); AST/SGOT 29 U/L (15-37); Albumin 3.8 g/dL (3.4-5.0); Alkaline Phosphatase 105 U/L (45-117); BUN Blood Urea Nitrogen 14 mg/dL (7-18); Bicarbonate 29 mmol/L (21-32); Bilirubin Direct < 0.1 mg/dL (0-0.2); Bilirubin Total 0.3 mg/dL (0.2-1.0); Glucose Level 82 mg/dL (74-106); Lipase 149 U/L (73-393); Potassium 3.6 mmol/L (3.5-5.1); Protein, Total 7.5 g/dL (6.4-8.2); Sodium Level 141 mmol/L (136-145)
--- NOTE | 2020-11-04 21:04 | RAD REPORT ---
EXAM DESCRIPTION: CTAbdomen Pelvis W Contrast - 11/04/2020 8:55 pm CLINICAL HISTORY: Abdominal pain. ABD PAIN COMPARISON: Chest For Pe Angio dated 07/07/2020 TECHNIQUE: Biphasic CT imaging of the abdomen and pelvis was performed with 100 ml non-ionic IV cont rast. All CT scans are performed using dose optimization technique as appropriate and may include automated exposure control or mA/KV adjustment according to patient size. FINDINGS: The lung bases are clear. The liver, spleen, pancreas, adrenal glands and kidneys are within normal limits. No bowel obstruction, free air, free fluid or abscess. Mild postsurgical changes are present along th e anterior abdominal wall midline. Slight inflammation is seen in the region. No focal fluid collecti on. Intra-abdominally at the site of surgical intervention a 36 mm oblong lesion is seen probably rel ated to recent surgery. The appendix is normal. No evidence of significant lymphadenopathy. No suspicious bony findings. IMPRESSION: No acute intra-abdominal or pelvic finding. Ventral hernia repair postsurgical changes are present along the midline without hematoma or patholog ic fluid collection.
[2020-11-04 21:21] LABS: Urine Blood TRACE (NEG); Urine Glucose NEGATIVE (NEG); Urine Protein NEGATIVE (NEG); Urine Specific Gravity 1.025 (1.005-1.030)
--- NOTE | 2020-11-04 22:09 | ER ---
Nurse's Notes [facility] Name: Nithin Mendoza Age: 30 yrs Sex: Male : 1990 Arrival Date: 11/04/2020 Time: 19:03 Bed 7 Private MD: Diagnosis: Upper abdominal pain, unspecified;Nausea and vomiting Presentation: 11/04 19:30 Chief complaint: Spouse and/or significant other states: Hernia surgery at [facility] ca1 10/07/2020. yesterday, started having abdominal pain from the incision and radiating to the R side. Today, started shooting to the R leg, swelling on the R abdominal area. C/O nausea, dizziness and extreme pain that he is unable to tolerate movements. Coronavirus screen: Client denies travel out of the [place] in the last 14 days. nausea, Client presents with at least one sign or symptom that may indicate coronavirus-19. Standard/surgical mask placed on the client. Provider contacted for isolation considerations. Ebola Screen: Patient negative for fever greater than or equal to 101.5 degrees Fahrenheit, and additional compatible Ebola Virus Disease symptoms Patient denies exposure to infectious person. Patient denies travel to an Ebola-affected area in the 21 days before illness onset. No symptoms or risks identified at this time. Initial Sepsis Screen: Does the patient meet any 2 criteria? No. Patient's initial sepsis screen is negative. Does the patient have a suspected source of infection? No. Patient's initial sepsis screen is negative. Risk Assessment: Do you want to hurt yourself or someone else? Patient reports no desire to harm self or others. Onset of symptoms was November 04, 2020. 19:30 Method Of Arrival: Wheelchair ca1 19:30 Acuity: DAISY 3 ca1 Historical: - Allergies: 19:33 Amoxicillin; ca1 19:33 Bactrim; ca1 - Home Meds: 19:33 Lasix Oral [Active]; lisinopril Oral [Active]; Synthroid Oral [Active]; ca1 - PMHx: 19:33 Hypertension; Hypothyroidism; ca1 - PSHx: 19:33 Hernia repair; ca1 - Immunization history:: Flu vaccine is not up to date. - Social history:: Smoking status: Reported history of juuling and/or vaping. Screenin:12 Abuse screen: Denies threats or abuse. Denies injuries from another. Nutritional rv screening: No deficits noted. Tuberculosis screening: No symptoms or risk factors identified. Fall Risk None identified. Assessment: 19:34 Reassessment: 's Number, [place] [phone] for any questions. ca1 20:11 General: Appears uncomfortable, Behavior is calm, cooperative. Pain: Complains of pain rv in umbilical area. Neuro: Level of Consciousness is awake, alert, obeys commands, Oriented to person, place, time, situation. Cardiovascular: Patient's skin is warm and dry. Respiratory: Airway is patent Respiratory effort is even, unlabored. GI: Abdomen is round non-distended, Bowel sounds present X 4 quads. Abd is soft Abdomen is tender to palpation X 4 quads. Derm: Skin is intact. 21:23 Reassessment: Patient appears in no apparent distress at this time. Patient is alert, rr5 oriented x 3, equal unlabored respirations, skin warm/dry/pink. Patient states feeling better. Patient states symptoms have improved. 22:14 Reassessment: Patient appears in no apparent distress at this time. Patient is alert, rr5 oriented x 3, equal unlabored respirations, skin warm/dry/pink. discharge instruction given and explained without complaints made Patient states feeling better. Patient states symptoms have improved. Vital Signs: 19:30 BP 127 / 85; Pulse 79; Resp 16 S; Temp 97.6(TE); Pulse Ox 95% on R/A; Weight 127.01 kg ca1 (R); Height 5 ft. 9 in. (175.26 cm) (R); Pain 9/10; 20:12 BP 117 / 72; Pulse 78; Resp 17; Pulse Ox 94% on R/A; rv 21:22 BP 125 / 80; Pulse 70; Resp 19; Pulse Ox 99% ; Pain 4/10; rr5 19:30 Body Mass Index 41.35 (127.01 kg, 175.26 cm) ca1 ED Course: 19:03 Patient arrived in ED. as 19:29 Cody Woody MD is Attending Physician. mh7 19:29 Bipin Richardson, ANANDA is Primary Nurse. rr5 19:32 Triage completed. ca1 19:33 Arm band placed on right wrist. ca1 19:50 Inserted saline lock: 20 gauge in right antecubital area, using aseptic technique. rv Blood collected. 19:50 Initial lab(s) drawn, by me, sent to lab. rv 20:12 Patient has correct armband on for positive identification. Pulse ox on. NIBP on. rv 20:12 No provider procedures requiring assistance completed. rv 20:55 CT Abd/Pelvis - IV Contrast Only In Process Unspecified. EDMS 22:12 IV discontinued, intact, bleeding controlled, No redness/swelling at site. Pressure rr5 dressing applied. Administered Medications: 19:50 Drug: NS 0.9% 1000 ml Route: IV; Rate: 1000 ml; Site: right antecubital; rr5 20:30 Follow up: Response: No adverse reaction; IV Status: Completed infusion; IV Intake: rr5 1000ml 19:50 Drug: Pepcid 20 mg Route: IVP; Site: right antecubital; rr5 21:00 Follow up: Response: No adverse reaction rr5 19:52 Drug: Zofran (Ondansetron) 4 mg Route: IVP; Site: right antecubital; rr5 21:00 Follow up: Response: No adverse reaction rr5 19:54 Drug: morphine 4 mg {Note: rass 0.} Route: IVP; Site: right antecubital; rr5 21:00 Follow up: Response: No adverse reaction; RASS: Alert and Calm (0) rr5 Intake: 20:30 IV: 1000ml; Total: 1000ml. rr5 Outcome: 22:08 Discharge ordered by . mh7 22:12 Discharged to home ambulatory. rr5 22:12 Condition: stable 22:12 Discharge instructions given to patient, Instructed on discharge instructions, follow up and referral plans. medication usage, Demonstrated understanding of instructions, follow-up care, medications, Prescriptions given X 3. 22:14 Patient left the ED. rr5 Signatures: Dispatcher [employer] EDMS Park Perry Ronaldo RN ANANDA rv Bipin Richardson RN RN rr5 Windy Yu RN RN ca1 Cody Woody MD MD 7
--- NOTE | 2020-11-04 22:09 | EDPHYS ---
Physician Documentation [facility] Name: Nithin Mendoza Age: 30 yrs Sex: Male : 1990 Arrival Date: 11/04/2020 Time: 19:03 Bed 7 Private MD: ED Physician Cody Woody HPI: 11/04 19:50 This 30 yrs old Male presents to ER via Wheelchair with complaints of mh7 Abdominal Distention, Abdominal Pain. 19:50 The patient presents with abdominal pain in the periumbilical area. Onset: The mh7 symptoms/episode began/occurred yesterday. The symptoms do not radiate. Associated signs and symptoms: Pertinent positives: nausea and vomiting, Pertinent negatives: anorexia, blood in stools, chest pain, constipation, diarrhea, dysuria, fever, headache, hematuria, palpitations, shortness of breath, testicular pain, vomiting blood. The symptoms are described as intermittent, vague, waxing/waning. Modifying factors: The symptoms are alleviated by nothing, the symptoms are aggravated by nothing. Severity of pain: At its worst the pain was moderate in the emergency department the pain is unchanged. Patient reports having abdominal hernia repair 10/07/20 at [facility].. Historical: - Allergies: 19:33 Amoxicillin; ca1 19:33 Bactrim; ca1 - Home Meds: 19:33 Lasix Oral [Active]; lisinopril Oral [Active]; Synthroid Oral [Active]; ca1 - PMHx: 19:33 Hypertension; Hypothyroidism; ca1 - PSHx: 19:33 Hernia repair; ca1 - Immunization history:: Flu vaccine is not up to date. - Social history:: Smoking status: Reported history of juuling and/or vaping. ROS: 19:50 Constitutional: Negative for fever, chills, and weight loss, Eyes: Negative for injury, mh7 pain, redness, and discharge, ENT: Negative for injury, pain, and discharge, Neck: Negative for injury, pain, and swelling, Cardiovascular: Negative for chest pain, palpitations, and edema, Respiratory: Negative for shortness of breath, cough, wheezing, and pleuritic chest pain, Back: Negative for injury and pain, : Negative for injury, bleeding, discharge, and swelling, MS/Extremity: Negative for injury and deformity, Skin: Negative for injury, rash, and discoloration, Neuro: Negative for headache, weakness, numbness, tingling, and seizure, Psych: Negative for depression, anxiety, suicide ideation, homicidal ideation, and hallucinations, Allergy/Immunology: Negative for hives, rash, and allergies, Endocrine: Negative for neck swelling, polydipsia, polyuria, polyphagia, and marked weight changes, Hematologic/Lymphatic: Negative for swollen nodes, abnormal bleeding, and unusual bruising. Exam: 19:50 Constitutional: This is a well developed, well nourished patient who is awake, alert, mh7 and in no acute distress. Head/Face: Normocephalic, atraumatic. Eyes: Pupils equal round and reactive to light, extra-ocular motions intact. Lids and lashes normal. Conjunctiva and sclera are non-icteric and not injected. Cornea within normal limits. Periorbital areas with no swelling, redness, or edema. Neck: Trachea midline, no thyromegaly or masses palpated, and no cervical lymphadenopathy. Supple, full range of motion without nuchal rigidity, or vertebral point tenderness. No Meningismus. Chest/axilla: Normal chest wall appearance and motion. Nontender with no deformity. No lesions are appreciated. Cardiovascular: Regular rate and rhythm with a normal S1 and S2. No gallops, murmurs, or rubs. Normal PMI, no JVD. No pulse deficits. Respiratory: Lungs have equal breath sounds bilaterally, clear to auscultation and percussion. No rales, rhonchi or wheezes noted. No increased work of breathing, no retractions or nasal flaring. 19:50 Back: No spinal tenderness. No costovertebral tenderness. Full range of motion. Skin: Warm, dry with normal turgor. Normal color with no rashes, no lesions, and no evidence of cellulitis. MS/ Extremity: Pulses equal, no cyanosis. Neurovascular intact. Full, normal range of motion. Neuro: Awake and alert, GCS 15, oriented to person, place, time, and situation. Cranial nerves II-XII grossly intact. Motor strength 5/5 in all extremities. Sensory grossly intact. Cerebellar exam normal. Normal gait. Psych: Awake, alert, with orientation to person, place and time. Behavior, mood, and affect are within normal limits. 19:50 Abdomen/GI: Inspection: scar(s), are noted in the umbilical area, Bowel sounds: normal, in all quadrants, Palpation: moderate abdominal tenderness, in the umbilical area, right upper quadrant and left upper quadrant, Rectal exam: the exam is deferred, because of patient request, Indicators: McBurney's point is not tender, Garcia's sign is negative, Rovsing's sign is negative, Obturator sign is negative, Psoas sign is negative, Liver: no appreciated palpable abnormalities, Hernia: not appreciated. Vital Signs: 19:30 BP 127 / 85; Pulse 79; Resp 16 S; Temp 97.6(TE); Pulse Ox 95% on R/A; Weight 127.01 kg ca1 (R); Height 5 ft. 9 in. (175.26 cm) (R); Pain 9/10; 20:12 BP 117 / 72; Pulse 78; Resp 17; Pulse Ox 94% on R/A; rv 21:22 BP 125 / 80; Pulse 70; Resp 19; Pulse Ox 99% ; Pain 4/10; rr5 19:30 Body Mass Index 41.35 (127.01 kg, 175.26 cm) ca1 MDM: 22:07 Differential diagnosis: appendicitis, bowel obstruction, cholecystitis, Cholelithiasis, mh7 diverticulitis, gastritis, gastroesophageal reflux disease, non-specific abd pain, pancreatitis, Peptic Ulcer Disease, Ureterolithiasis, urinary tract infection. Data reviewed: vital signs, nurses notes, lab test result(s), amylase and lipase, CBC, electrolytes, urinalysis, radiologic studies, CT scan. Data interpreted: Pulse oximetry: on room air is 99 %. Interpretation: normal. Counseling: I had a detailed discussion with the patient and/or guardian regarding: the historical points, exam findings, and any diagnostic results supporting the discharge/admit diagnosis, lab results, radiology results, the need for outpatient follow up, to return to the emergency department if symptoms worsen or persist or if there are any questions or concerns that arise at home. Response to treatment: the patient's symptoms have resolved after treatment, the patient's blood pressure is in an acceptable range, mental status has returned to baseline, the patient no longer shows bradycardia, the patient is not short of breath, the patient is not tachycardic, the patient's pain is gone, the patient's temperature has normalized, the patient is now symptom free, patient is well hydrated. 22:08 Patient medically screened. [facility] 11/04 19:42 Order name: Basic Metabolic Panel; Complete Time: 20:41 [facility] 11/04 19:42 Order name: CBC with Diff; Complete Time: 20:41 [facility] 11/04 19:42 Order name: Hepatic Function; Complete Time: 20:41 [facility] 11/04 19:42 Order name: Lipase; Complete Time: 20:41 [facility] 11/04 19:42 Order name: CT Abd/Pelvis - IV Contrast Only; Complete Time: 21:18 [facility] 11/04 20:21 Order name: Urine Dipstick--Ancillary (enter results); Complete Time: 21:24 11/04 19:42 Order name: IV Saline Lock; Complete Time: 20:13 [facility] 11/04 19:42 Order name: Labs collected and sent; Complete Time: 20:13 [facility] 11/04 19:42 Order name: Urine Dipstick-Ancillary (obtain specimen); Complete Time: 20:21 [facility] Administered Medications: 19:50 Drug: NS 0.9% 1000 ml Route: IV; Rate: 1000 ml; Site: right antecubital; rr5 20:30 Follow up: Response: No adverse reaction; IV Status: Completed infusion; IV Intake: rr5 1000ml 19:50 Drug: Pepcid 20 mg Route: IVP; Site: right antecubital; rr5 21:00 Follow up: Response: No adverse reaction rr5 19:52 Drug: Zofran (Ondansetron) 4 mg Route: IVP; Site: right antecubital; rr5 21:00 Follow up: Response: No adverse reaction rr5 19:54 Drug: morphine 4 mg {Note: rass 0.} Route: IVP; Site: right antecubital; rr5 21:00 Follow up: Response: No adverse reaction; RASS: Alert and Calm (0) rr5 Disposition: 11/04/20 22:08 Discharged to Home. Impression: Upper abdominal pain, unspecified, Nausea and vomiting. - Condition is Stable. - Discharge Instructions: Nausea and Vomiting, Adult, [id number], Abdominal Pain, Adult, [id number]. - Prescriptions for Zofran ODT 4 mg Oral tablet,disintegrating - place 1 tablet by TRANSLINGUAL route every 8 hours As needed; 6 tablet. Bentyl 20 mg Oral Tablet - take 1 tablet by ORAL route every 6 hours As needed; 20 tablet. Pepcid 20 mg Oral Tablet - take 1 tablet by ORAL route every 12 hours for 5 days; 10 tablet. - Medication Reconciliation Form, Thank You Letter, Antibiotic Education, Prescription Opioid Use form. - Follow up: Private Physician; When: 1 - 2 days; Reason: Worsening of condition, Recheck today's complaints, Continuance of care, Re-evaluation by your physician. - Problem is new. - Symptoms have improved. Signatures: Dispatcher [employer] EDMS Cesar Foreman, METAPHYSICIAN-C METAPHYSICIAN-Cla1 Bipin Richardson RN RN rr5 Windy Yu RN RN ca1 Cody Woody MD MD mh7 Corrections: (The following items were deleted from the chart) 22:14 22:08 11/04/2020 22:08 Discharged to Home. Impression: Upper abdominal pain, rr5 unspecified; Nausea and vomiting. Condition is Stable. Forms are Medication Reconciliation Form, Thank You Letter, Antibiotic Education, Prescription Opioid Use. Follow up: Private Physician; When: 1 - 2 days; Reason: Worsening of condition, Recheck today's complaints, Continuance of care, Re-evaluation by your physician. Problem is new. Symptoms have improved. mh7
[2020-11-04 22:20] VITALS: TEMP 97.6
[2020-11-04 22:23] VITALS: BP 125/80; O2SAT 99
== END 2020-11-04 22:14 | disposition home or self-care (01) ==
LOC: ER 19:00
DX: R11.2 Nausea with vomiting, unspecified (principal); I10 Essential (primary) hypertension; E03.9 Hypothyroidism, unspecified; Z88.1 Allergy status to other antibiotic agents; Z87.891 Personal history of nicotine dependence
CPT/HCPCS: 96361; 85025; 80048; 36415; 80076; 81003; 83690; 74177; 96375; 96374; 99284; Q9967; J7030; J2405